=== PATIENT | female | born 1940 | race Caucasian/White ===

== ENCOUNTER → 2023-08-29 12:20 | Outpatient (BNVA) | payer MEDICARE, OTHER, SELFPAY | PROVIDERS: Visit Provider Nurse Practitioner Family | DX: I96 Gangrene, not elsewhere classified (principal); L97.822 Non-pressure chronic ulcer of other part of left lower leg with fat layer exposed | CPT/HCPCS: 87070; 87077; 87176; 87186; 87205 ==

== ENCOUNTER 2023-09-09 15:05 | Inpatient (IN) | payer MEDICARE, SELFPAY ==
[2023-09-09] VITALS (24 sets, daily range): BP systolic 75–131; BP diastolic 40–78; PULSE 97–133; RESP 20–33; TEMP 36.8–36.9; O2SAT 88–98; BMI 29.1
--- NOTE | 2023-09-09 15:12 | ECG_ITS ---
[facility] Test Date: 2023-09-09 Pat Name: Yoly Piedra Department: Room: Gender: Female [employer] Team Member: : 1940 Requested By: Jason Griffiths Order Number: [id number] Candelario MD: Stephen Quigley M.D. Measurements Intervals [place] Rate: 98 P: 43 ID: [id number] QRS: -33 QRSD: 94 T: 33 QT: 314 QTc: 402 Interpretive Statements SINUS RHYTHM LEFT AXIS DEVIATION [QRS AXIS < -30] LOW QRS VOLTAGE IN PRECORDIAL LEADS [QRS DEFLECTION < 1.0 mV IN CHEST LEADS] PATTERN CONSISTENT WITH PULMONARY DISEASE INTERPRETATION BASED ON A DEFAULT AGE OF 40 YEARS No previous ECG available for comparison Electronically Signed On 09-10-2023 23:57:06 CDT by Stephen Quigley M.D. [id number]
--- NOTE | 2023-09-09 15:13 | XRR_ITS ---
PROCEDURE INFORMATION: Exam: XR Chest Exam date and time: 09/09/2023 3:43 PM Age: 83 years old Clinical indication: Prior surgery; Surgery date: 6+ months; Patient HX: SOB; Dyspnea; Cough; Ex smoker; HX RT breast cancer with RT lumpectomy TECHNIQUE: Imaging protocol: Radiologic exam of the chest. Views: 1 view. COMPARISON: No relevant prior studies available. FINDINGS: Lungs: See Pleural spaces finding. Pleural spaces: Moderate left pleural effusion with adjacent compressive atelectasis or pneumonia. Heart/Mediastinum: Heart size not optimally evaluated with a single AP view of the chest. Bones/joints: There are severe degenerative changes across the glenohumeral and acromioclavicular joints. Degenerative changes are present in the visualized spine. XR/XR chest 1V portable [id number] IMPRESSION: Moderate left pleural effusion with adjacent compressive atelectasis or pneumonia.
[2023-09-09] MEDS: ipratropium-albuterol 3 mL Neb INHALATION (15:25)
--- NOTE | 2023-09-09 15:29 | ED_ITS ---
HPI - SOB/Dyspnea 2 General: Chief Complaint: Shortness of Breath/Dyspnea Stated Complaint: SOB Time Seen by Provider: 09/09/23 15:12 Source: patient Mode of arrival: ambulatory History of Present Illness: HPI Narrative: 83-year-old female presents emergency ro om with hypoxia. She is on oxygen normally at 3 L/min on arrival here she is at 90%. Trial off of oxygen she desats to the mid upper 80s. She has had some mild swelling to her lower extremities she denies chest pain. No fever sweats or chills or productive cough. Denies abdominal pain. MD elicited complaint: shortness of breath Associated symptoms: Deny abdominal pain, chest pain or fever(s) Review of Systems 2 Const: Denies: fever(s) or chills Card: Reports: swelling of feet/ankles; Denies: chest pain Resp: Reports: dyspnea GI: Denies: abdominal pain : Denies: dysuria, urinary frequency or urinary urgency Musc: Denies: neck pain or back pain Skin/Breast: Denies: rash PFSH ED 2 PFSH: Medical History (Updated 09/21/23 @ 12:39 by Jason Freeman DO) Unspecified dementia, unspecified severity, without behavioral disturbance, psychotic disturbance, mood disturbance, and anxiety Arthropathy, unspecified Essential (primary) hypertension Gastro-esophageal reflux disease without esophagitis Age-related osteoporosis without current pathological fracture Iron deficiency anemia, unspecified Deficiency of other specified B group vitamins Other chronic pain Overactive bladder Unspecified disorder of adult personality and behavior Hallucinations, unspecified Social History Smoking and tobacco/nicotine status: unknown if used tobacco/nicotine Alcohol intake: unknown Substance/Drug Use: never Housing: Long Term Marital status: / Current occupational status: retired Current gender identity: Female Physical Exam 2 Const: GENERAL APPEARANCE: lethargic ORIENTATION/CONSCIOUSNESS: Yes lethargic HENMT: COMMON NORMALS: normocephalic, atraumatic and hearing grossly normal bilaterally HEAD & SCALP: normocephalic and atraumatic Resp: COMMON NORMALS: normal respiratory effort, No retractions and No use of accessory muscles AUSCULTATION: rhonchi and wheezes Cardio: COMMON NORMALS: regular rate, regular rhythm and No murmurs present (Cardio) RATE: regular rate RHYTHM: regular rhythm GI: COMMON NORMALS: Soft to palpation and No hepatosplenomegaly present A USCULTATION: Yes normoactive bowel sounds PALPATION: Yes Soft to palpation, No Tenderness to palpation present (GI), No Guarding due to palpation present (GI) and Yes No hepatosplenomegaly present Extremity: COMMON NORMALS: normal to inspection, capillary refill normal, no clubbing, cyanosis or edema, no calf tenderness and no pedal edema Neuro: SENSORIUM/ORIENTATION: Yes lethargic Skin: COMMON NORMALS: no rashes or lesions noted GENERAL SKIN EXAM: no rashes or lesions noted Course 2 Vital Signs: Vital signs: Vital Signs Temperature 98.1 F 09/16/23 15:31 Pulse Rate 101 H 09/16/23 15:31 Respiratory Rate 24 H 09/16/23 15:31 Blood Pressure 109/68 09/16/23 15:31 Pulse Oximetry 87 L 09/16/23 15:31 Oxygen Delivery Me thod Nasal Cannula 09/16/23 12:00 Oxygen Flow Rate 5 09/16/23 10:24 Fraction of Inspir ed Oxygen 40 09/12/23 02:25 MDM - SOB/Dyspnea Medical Decision Making Acute hypercapnic respiratory failure with hyperkalemia and hyponatremia. Will admit discussed with hospitalist orders written Medical Records I reviewed the patient's medical records. Lab Data I reviewed the patient's lab results. 09/14/23 04:02 09/16/23 03:36 Labs/Radiology: Radiology Impressions Liver Ultrasound 09/09/23 17:38 IMPRESSION: No acute findings. Chest/Abdomen/Pelvis CT 09/09/23 18:02 IMPRESSION: 1. Consolidation at the posterior aspects of the lungs may represent prominent atelectatic change or pneumonia. 2. Heterogeneous right breast densities. Please correlate with mammography findings. IMPRESSION: There is a ventral abdominal hernia superior to the umbilicus containing a short segment of the transverse colon with associated mucosal thickening and minimal mesenteric inflammatory stranding in this region raising concern for strangulation. Laboratory Results WBC 8.28 10^3/uL (3.29-11.43) 09/09/23 15:24 RBC 4.11 10^6/uL (3.85-5.65) 09/09/23 15:24 Hgb 12.30 g/dL (11.27-16.99) 09/09/23 15:24 Hct 38.8 % (36-47) 09/09/23 15:24 MCV 94.4 fl (85-98) 09/09/23 15:24 MCH 29.9 pg (27-33) 09/09/23 15:24 MCHC 31.7 g/dL (30-55) 09/09/23 15:24 RDW 13.5 % (12.1-15.1) 09/09/23 15:24 Plt Count 230 10^3/cmm (157-399) 09/09/23 15:24 MPV 9.2 fL (7.4-10.4) 09/09/23 15:24 Neut % (Auto) 72.8 % 09/09/23 15:24 Lymph % (Auto) 5.1 % 09/09/23 15:24 [place] % (Auto) 6.2 % 09/09/23 15:24 Eos % (Auto) 14.5 % 09/09/23 15:24 Baso % (Auto) 0.4 % 09/09/23 15:24 Neut # (Auto) 6.04 10^3/uL (1.8-7.7) 09/09/23 15:24 Lymph # (Auto) 0.4 10^3/uL (0.8-4.8) L 09/09/23 15:24 [place] # (Auto) 0.5 10^3/uL (0.2-0.9) 09/09/23 15:24 Eos # (Auto) 1.2 10^3/uL (0.0-0.8) H 09/09/23 15:24 Baso # (Auto) 0.0 10^3/uL (0.0-0.1) 09/09/23:24 Nucleated RBC % (auto) 0 % 09/09/23 15:24 Nucleated RBCs # 0.0 /100WBC 09/09/23 15:24 D-Dimer 1.74 ug/mLFEU (0-0.59) H 09/09/23 15:24 Specimen Type Arterial 09/09/23 15:32 Sample Site Radial, right 09/09/23 15:32 ABG pH 7.34 (7.35-7.45) L 09/09/23 15:32 ABG pCO2 67.6 mmHg (35-45) H* 09/09/23 15:32 ABG pO2 73.3 mmHg (80.0-100.0) L 09/09/23 15:32 ABG PO2/FiO2 Ratio 0 09/09/23 15:32 ABG HCO3 36.4 mmol/L (22-26) H 09/09/23 15:32 ABG O2 Saturation 95.0 09/09/23 15:32 ABG Base Excess 8.4 mmol/L (-2.0-2.0) H 09/09/23 15:32 Shane Test Pos 09/09/23 15:32 A-a O2 Gradient Not Reportable 09/09/23 15:32 Hematocrit 37.1 % (37-47) 09/09/23 15:32 Hgb O2 Saturation 93.3 % (95-100) L 09/09/23 15:32 Carboxyhemoglobin 1.1 %THgb (0.4-20.1) 09/09/23 15:32 Methemoglobin 0.6 % (0.4-1.5) 09/09/23 15:32 Total Hemoglobin 12.1 g/dL (12-16) 09/09/23 15:32 Sodium 129.0 mmol/L (131-143) L 09/09/23 15:32 Potassium 5.4 mmol/L (3.5-5.0) H 09/09/23 15:32 Glucose 95.0 mg/dL (70-115) 09/09/23 15:32 Ionized Calcium 1.3 mmol/L (1.1-1.4) 09/09/23 15:32 O2 Delivery Device Room air 09/09/23 15:32 FiO2 21.0 % 09/09/23 15:32 Brim Presser ID Amh 09/09/23 15:32 Sodium 130 mmol/L (136-145) L 09/09/23 15:24 Sodium Cancelled 09/09/23 15:24 Potassium 6.2 mmol/L (3.5-5.1) H 09/09/23 15:24 Potassium Cancelled 09/09/23 15:24 Chloride 89 mmol/L (98-107) L 09/09/23 15:24 Chloride Cancelled 09/09/23 15:24 Carbon Dioxide 33 mmol/L (22-29) H 09/09/23 15:24 Carbon Dioxide Cancelled 09/09/23 15:24 Anion Gap 14.2 (5-19) 09/09/23 15:24 Anion Gap Cancelled 09/09/23 15:24 BUN 27 mg/dL (8-23) H 09/09/23 15:24 BUN Cancelled 09/09/23 15:24 Creatinine 0.6 mg/dL (0.5-0.9) 09/09/23 15:24 Creatinine Cancelled 09/09/23 15:24 GFR Calculation Cancelled 09/09/23 15:24 GFR Calculation Not Reportable 09/09/23 15:24 Glucose 88 mg/dL (65-115) 09/09/23 15:24 Glucose Cancelled 09/09/23 15:24 Calculated Osmolality 275 mOsm/kg (285-295) L 09/09/23 15:24 Calculated Osmolality Cancelled 09/09/23 15:24 Lactic Acid 1.3 mmol/L (0.5-2.2) 09/09/23 17:26 Calcium 9.6 mg/dL (8.5-10.5) 09/09/23 15:24 Calcium Cancelled 09/09/23 15:24 Iron 26 ug/dL (37-145) L 09/09/23 15:24 TIBC 219 mcg/dl 09/09/23 15:24 % Saturation 11.8 % (20-50) L 09/09/23 15:24 Unsat Iron Binding 193 ug/dL (112-347) 09/09/23 15:24 Total Bilirubin 0.8 mg/dL (0.15-1.2) 09/09/23 15:24 AST 109 U/L (0-32) H 09/09/23 15:24 ALT 131 U/L (0-33) H 09/09/23 15:24 Alkaline Phosphatase 359 U/L (35-105) H 09/09/23 15:24 Troponin T Baseline 20 ng/L (0-10) H 09/09/23 15:24 Troponin T 120 Minute 16.28 ng/L (0-10) H 09/09/23 17:26 Delta Troponin T -3.72 ABS# (0-10) L 09/09/23 17:26 NT-Pro-B Natriuret Pep 1402 pg/mL (0-450) H 09/09/23 15:24 Total Protein 6.4 g/dL (6.6-8.7) L 09/09/23 15:24 Albumin 3.5 g/dL (3.5-5.2) 09/09/23 15:24 Globulin 2.9 g/dL (1.3-4.6) 09/09/23 15:24 Vitamin B12 718 pg/mL (232-1245) 09/09/23 15:24 Procalcitonin 0.21 ng/mL (0-0.5) 09/09/23 17:26 TSH 0.64 uIU/mL (0.27-4.20) 09/09/23 15:24 Urine Color Dark yellow (Yellow) 09/09/23 16:25 Urine Appearance Cloudy (CLEAR) A 09/09/23 16:25 Urine pH 5 (5-7) 09/09/23 16:25 Ur Specific [place] 1.015 (1.005-1.030) 09/09/23 16:25 Urine Protein 1+ (Negative) H 09/09/23 16:25 Urine Glucose (UA) Norm (Normal) 09/09/23 16:25 Urine Ketones 1+ (Negative) H 09/09/23 16:25 Urine Blood Trace (Negative) H 09/09/23 16:25 Urine Nitrate Negative (Negative) 09/09/23 16:25 Urine Bilirubin 1+ (Negative) H 09/09/23 16:25 Urine Urobilinogen Neg mg/dL (Negative) 09/09/23 16:25 Ur Leukocyte Esterase 1+ (Negative) H 09/09/23 16:25 Urine RBC 0-4 /hpf (0-2) H 09/09/23 16:25 Urine WBC 15-25 /hpf (0-5) H 09/09/23 16:25 Ur Squamous Epith Cells 5-10 /hpf (0-5) H 09/09/23 16:25 Amorphous Sediment Not Reportable 09/09/23 16:25 Urine Bacteria 2+ /hpf (NONE) H 09/09/23 16:25 Hyaline Casts 0-4 /lpf H 09/09/23 16:25 All radiology interpretation(s) finalized by discharge Discharge Plan Discharge Patient Disposition: Admitted As Inpatient Admit Provider: Luis Fernando Vargas Clinical Impression: Respiratory failure with hypoxia and hypercapnia, UTI (urinary tract infection), Hyperkalemia, Hyponatremia, Transaminitis, Left leg cellulitis Condition: Fair Discharge Diet: As Directed Discharge Activity: Increase activity as tolerated and Oxygen as instructed Coding Level of Care Code ED [employer] Attorney for Jyoti Butterfield
[2023-09-09 15:43] LABS: ABG PCO2 67.6 mmHg (35-45); ABG PH Result 7.34 (7.35-7.45); Arterial Blood Gas Hematocrit 37.1 % (37-47); Base Excess ABG 8.4 mmol/L (-2.0-2.0); Blood Gas Allen Test Pos; Blood Gas Operator Identificat AMH; Blood Gas Sample Site Radial, right; Blood Gas Sample Type Arterial; Carboxyhemoglobin 1.1 %THgb (0.4-20.1); HCO3 ABG 36.4 mmol/L (22-26); HGB O2 Sat 93.3 % (95-100); Ionized Calcium Level - ABG 1.3 mmol/L (1.1-1.4); Methemoglobin 0.6 % (0.4-1.5); Oxygen Device ROOM AIR; PO2 ABG 73.3 mmHg (80.0-100.0); PO2 FiO2 Ratio Arterial Blood 0; Potassium Level - ABG 5.4 mmol/L (3.5-5.0); Total Hemoglobin 12.1 g/dL (12-16)
[2023-09-09 15:45] LABS: Basophils % 0.4 %; Eosinophils # 1.2 10^3/uL (0.0-0.8); Eosinophils % 14.5 %; Hematocrit 38.8 % (36-47); Lymphocytes # 0.4 10^3/uL (0.8-4.8); Lymphocytes % 5.1 %; Mean Corpuscular HGB Conc 31.7 g/dL (30-55); Mean Corpuscular Hemoglobin 29.9 pg (27-33); Mean Corpuscular Volume 94.4 fl (85-98); Mean Platelet Volume 9.2 fL (7.4-10.4); Monocytes # 0.5 10^3/uL (0.2-0.9); Monocytes % 6.2 %; Neutrophils # 6.04 10^3/uL (1.8-7.7); Neutrophils % 72.8 %; Nucleated Red Blood Cells % 0 %; Platelet Count 230 10^3/cmm (157-399); Red Blood Count 4.11 10^6/uL (3.85-5.65); Red Cell Distribution Width 13.5 % (12.1-15.1); White Blood Count 8.28 10^3/uL (3.29-11.43)
[2023-09-09 15:54] LABS: Alanine Aminotransferase 131 U/L (0-33); Albumin Level 3.5 g/dL (3.5-5.2); Alkaline Phosphatase 359 U/L (35-105); Anion Gap 14.2 (5-19); Aspartate Amino Transferase 109 U/L (0-32); Blood Urea Nitrogen 27 mg/dL (8-23); Calcium 9.6 mg/dL (8.5-10.5); Carbon Dioxide 33 mmol/L (22-29); Chloride 89 mmol/L (98-107); Creatinine Clr Calc Pharmacy 49.5998; Globulin 2.9 g/dL (1.3-4.6); Glucose 88 mg/dL (65-115); Osmolality Calculated 275 mOsm/kg (285-295); Potassium 6.2 mmol/L (3.5-5.1); Sodium 130 mmol/L (136-145); Total Bilirubin 0.8 mg/dL (0.15-1.2); Total Protein 6.4 g/dL (6.6-8.7)
[2023-09-09 15:55] LABS: Troponin(5th) Baseline 20 ng/L (0-10)
--- NOTE | 2023-09-09 16:20 | PC.PHAR ---
PT IS FROM [facility] [phone] FROM [facility] STATES THE PT HAD AM MEDS TODAY-STATES PT IS NOT ON INSULINS OR ANY OTHER INJECTIONS-VERIFIED PTS GABAPENTIN AND ACETAMINOPHEN DIRECTIONS CARVER STATES THE PT TAKES GABAPENTIN 300MG PO BID AND 600MG HS AND ACETAMINOPHEN 650MG IN THE AM 325MG IN THE AFTERNOON AND 325MG HS-
--- NOTE | 2023-09-09 16:33 | PC.NURSE ---
Vital Sign: B/P currently 83/42, Dr. Freeman notified. pt placed in trendelenburg.
[2023-09-09 16:38] LABS: NT Pro B Type Natriuretic Pept 1402 pg/mL (0-450)
[2023-09-09 16:53] LABS: Glucose Urine UA Norm (Normal); Protein Urine 1+ (Negative); Specific Gravity, Urine 1.015 (1.005-1.030); Urine Appearance Cloudy (CLEAR); Urine Color Dark Yellow (Yellow); pH Urine 5 (5-7)
[2023-09-09 16:54] LABS: Add Urine Microscopic? YES; Bilirubin Urine 1+ (Negative); Blood Urine Trace (Negative); Ketones Urine 1+ (Negative); Leukocyte Esterase Urine 1+ (Negative); Nitrate Urine Negative (Negative); Urobilinogen Urine Neg (Negative)
[2023-09-09 16:55] LABS: RBC Urine 0-4 /hpf (0-2)
[2023-09-09 16:56] LABS: Bacteria Urine 2+ /hpf; WBC Urine 15-25 /hpf (0-5)
[2023-09-09 16:57] LABS: Add Urine Culture? Yes; Hyaline Casts Urine 0-4 /lpf
[2023-09-09] MEDS: sodium chloride 0.9% 500 ML 999 ML IV (17:08)
[2023-09-09] MEDS: cefTRIAXone 1,000 MG in sodium chloride 0.9% (plus) 50 ML 100 MG IV (17:08)
--- NOTE | 2023-09-09 17:08 | PC.NURSE ---
Medication Delay: antibiotics delayed that were ordered @1649 d/t waiting on blood cultures to be drawn
--- NOTE | 2023-09-09 17:11 | ECG_ITS ---
[facility] Test Date: 2023-09-09 Pat Name: Yoly Piedra Department: Room: Gender: Female [employer]: : 1940 Requested By: Jason Griffiths Order Number: [id number] Candelario MD: Stephen Quigley M.D. Measurements Intervals [place] Rate: 103 P: 44 [place]: 154 QRS: -30 QRSD: 94 T: 39 QT: 317 QTc: 415 Interpretive Statements SINUS TACHYCARDIA BORDERLINE LEFT AXIS DEVIATION [QRS AXIS < -20] ABNORMAL RHYTHM ECG Compared to ECG 09/09/2023 15:12:56 Sinus rhythm no longer present Electronically Signed On 09-10-2023 23:59:49 CDT by Stephen Quigley M.D. [id number]
[2023-09-09] MEDS: albuterol 2.5 mg/3 mL Neb 10 MG INHALATION (17:37)
--- NOTE | 2023-09-09 17:38 | USR_ITS ---
PROCEDURE INFORMATION: Exam: US Abdomen, Limited; Right Upper Quadrant Exam date and time: 09/09/2023 6:05 PM Age: 83 years old Clinical indication: Elevated liver enzymes; Elevated alp, transaminitis TECHNIQUE: Imaging protocol: Real time ultrasound of the abdomen with image documentation. Limited exam focused on the right upper quadrant. COMPARISON: No relevant prior studies available. FINDINGS: Liver: Normal. No masses. Gallbladder: Normal. No gallstones. There is no gallbladder wall thickening. Biliary ducts: Normal. No stones. No dilation. Pancreas: Visualized pancreas is unremarkable. Right kidney: Normal. No mass. No hydronephrosis. US/US liver [id number] IMPRESSION: No acute findings.
[2023-09-09 17:57] LABS: D Dimer 1.74 ug/mLFEU (0-0.59)
--- NOTE | 2023-09-09 17:59 | PC.NURSE ---
this nurse called and updated Archana, the nurse at [facility] over pt's care. no further questions at end of report.
[2023-09-09 18:01] LABS: Lactic Sepsis W/Reflex 1.3 mmol/L (0.5-2.2)
--- NOTE | 2023-09-09 18:01 | P.HP_ITS ---
Providers/Chief Complaint 2 Chief Complaint: SOB History of Present Illness History gathered by the nurse taking care of the patient at [facility]. Yoly Piedra is a 83 year old female with past medical history of hypertension, halfway resident was sent into the ER today from the halfway because of persistent hypoxia requiring oxygen supplementation up to 3 L over last 10 days gradually getting worse associated with worsening confusion, cough and difficulty in breathing along with generalized weakness. Patient has also been complaining of occasional chest heaviness without any active chest pains. Currently on examination patient is pleasant, laying comfortably in bed, not a good historian but states she has been having to need oxygen so she was sent into the ER. Currently complaining of abdominal fullness with mild epigastric heaviness. Review of Systems 2 General: Reports: ROS unobtainable due to medical condition Medications/Allergies Home Medications Medication Instructions Recorded Confirmed Last Taken Type benzonatate 100 mg capsule 100 mg PO TID PRN Cough 08/29/23 09/09/23 Unknown History bisacodyl 10 mg rectal suppository 10 mg IN DAILY PRN Constipation 08/29/23 09/09/23 Unknown History (Dulcolax (bisacodyl)) calcium citrate 200 mg (950 mg) 200 mg PO QAM 08/29/23 09/09/23 09/09/23 History tablet cholecalciferol (vitamin D3) 50 50 mcg PO QAM 08/29/23 09/09/23 09/09/23 History mcg (2,000 unit) capsule docusate sodium 100 mg capsule 100 mg PO BID PRN Constipation 08/29/23 09/09/23 Unknown History folic acid 1 mg tablet 1 mg PO QAM 08/29/23 09/09/23 09/09/23 History magnesium hydroxide 400 mg/5 mL 30 ml PO DAILY PRN Constipation 08/29/23 09/09/23 Unknown History oral suspension (Milk of Magnesia) metoprolol tartrate 25 mg tablet 25 mg PO BID 08/29/23 09/09/23 09/09/23 History naproxen 500 mg tablet 500 mg PO BID PRN Pain 08/29/23 09/09/23 Unknown History oxybutynin chloride 5 mg tablet 5 mg PO BID 08/29/23 09/09/23 09/09/23 History pantoprazole 40 mg tablet,delayed 40 mg PO QAM 0309/09/23 09/09/23 History release risperidone 0.25 mg tablet 0.25 mg PO BEDTIME 08/29/23 09/09/23 09/08/23 History gentamicin 0.1 % topical ointment 1 applic topical TID 09/05/23 09/09/23 09/09/23 History levofloxacin 750 mg tablet 750 mg PO DAILY 09/05/23 09/09/23 09/09/23 History Lactobacillus acidophilus 10 See Rx Instructions .Route .COMPLEX 09/09/23 09/09/23 09/09/23 History billion cell capsule (Probiotic) acetaminophen 325 mg tablet See Rx Instructions .Route .COMPLEX 09/09/23 09/09/23 09/09/23 History (Tylenol) carbamide peroxide 6.5 % ear drops See Rx Instructions .Route .COMPLEX 09/09/23 09/09/23 Unknown History (Debrox) gabapentin 300 mg capsule See Rx Instructions .Route .COMPLEX 09/09/23 09/09/23 09/09/23 History lidocaine HCl 2 % topical gel See Rx Instructions .Route .COMPLEX 09/09/23 09/09/23 Unknown History vitamin A and D See Rx Instructions .Route .COMPLEX 09/09/23 09/09/23 09/09/23 History Allergies Allergy/AdvReac Type Severity Reaction Status Date / Time Penicillins Allergy Severe ALGY-Anaphy Verified 09/05/23 15:16 laxis vancomycin Allergy Severe ALGY-Difficulty Verified 09/05/23 15:16 Breathing Sulfa (Sulfonamide Allergy Unknown Unknown Verified 09/05/23 15:16 Antibiotics) PFSH Acute 2 PFSH: Medical History (Updated 09/09/23 @ 18:07 by Luis Fernando Vargas MD) Unspecified dementia, unspecified severity, without behavioral disturbance, psychotic disturbance, mood disturbance, and anxiety Arthropathy, unspecified Essential (primary) hypertension Gastro-esophageal reflux disease without esophagitis Age-related osteoporosis without current pathological fracture Iron deficiency anemia, unspecified Deficiency of other specified B group vitamins Other chronic pain Overactive bladder Unspecified disorder of adult personality and behavior Hallucinations, unspecified Social History Smoking and tobacco/nicotine status: unknown if used tobacco/nicotine Alcohol intake: unknown Substance/Drug Use: never Housing: Intermediate Marital status: / Current occupational status: retired Current gender identity: Female Vitals/I&O/Wt Last Vital Signs Temp 98.3 F 09/09/23 15:18 Pulse 108 H 09/09/23 17:53 Resp 27 H 09/09/23 17:44 BP 90/42 09/09/23 17:44 Pulse Ox 97 09/09/23 17:44 O2 Del Method Nasal Cannula 09/09/23 17:44 O2 Flow Rate 3 09/09/23 17:44 09/09/23 09/09/23 09/09/23 06:59 14:59 22:59 Intake Total 500 / 500 Balance 500 / 500 Weight last 48 hrs Weight 58.967 kg Physical Exam 2 Narrative: General: No acute distress, AO x3 HEENT: PERRLA, pupils bilaterally equal and reactive Chest: Normal vesicular breath sounds, no added sounds, equal good air entry bilaterally CVS: S1-S2 regular, no murmurs, no tachycardia, no gallops, no rubs Abdomen: Soft, nontender, no organomegaly, bowel sounds present Neuro: No focal deficits, no facial deformity, AO x3, power 5/5 in all limbs Data 09/09/23 15:24 09/09/23 15:24 Micro: Microbiology 09/09/23 17:26 Blood Culture - Preliminary Blood SPECIMEN COLLECTED 09/09/23 17:20 Blood Culture - Preliminary Blood SPECIMEN COLLECTED A&P Assessment and plan (1) Respiratory failure with hypoxia and hypercapnia: Not based usually on oxygen. Currently requiring 3 L. ABG showing hypercapnia and hypoxia with mild respiratory acidosis. Check D-dimer, sputum culture, urine Legionella, bacterial antigen, procalcitonin, urine culture. Concerns for congestive heart failure on chest x-ray. Cannot rule out underlying consolidation. Depending on D-dimer we will plan for CTA versus CT chest. History of infections with Pseudomonas and MRSA. For now start on IV meropenem and linezolid as patient is allergic to vancomycin. Will de-escalate antibiotics as per culture results. Check echocardiogram. Campbell catheterization. IV Lasix 40 mg one-time followed by daily. Strict input output charting, daily weights. Patient's blood pressure is borderline. Will continue to monitor blood pressure if needed will start on Levophed. (2) UTI (urinary tract infection): Complains of mild dysuria. Appreciate UA. Antibiotics as above. (3) Hyponatremia: Most likely hypervolemic hyponatremia. Monitor BMP daily. (4) Hyperkalemia: Received calcium in the ER. Will give D50 and 10 units of insulin and sodium bicarb. Repeat BMP at around 8 PM. (5) Transaminitis: Not sure of the cause. Check liver ultrasound. Rule out gallbladder pathology. Could be in setting of congestive hepatomegaly. (6) Left leg cellulitis: Follows up with wound care. Continue wound care dressing as per recommendations. Antibiotics as above. (7) Essential (primary) hypertension: Goal blood pressure less than 140/90 mmHg. Blood pressure is currently soft. Continue to hold off on home dose of antihypertensives. Hold off on metoprolol as well. Will monitor for tachycardia. Secondary to low blood pressures requiring Lasix for congestive heart failure for now will give albumin every 8 hourly. If not responding can plan for Levophed. Plan CODE STATUS: As per the nurse from the halfway patient is DNR/DNI. Paperwork from the halfway saying full code. Have requested for paperwork to be faxed over. Till then full code. Cardiac diet. Protonix for PUD prophylaxis Heparin 5000 every 12 hourly for DVT prophylaxis. Attestations 2 Medical Necessity Statement*: Admission for more than 2 midnights for management of respiratory failure with hypoxia and hypercapnia most likely in setting of congestive heart failure, possible UTI, transaminitis under evaluation Diagnoses Respiratory failure with hypoxia and hypercapnia J96.91; J96.92 UTI (urinary tract infection) N39.0 Hyponatremia E87.1 Hyperkalemia E87.5 Transaminitis R74.01 Left leg cellulitis L03.116 Essential (primary) hypertension I10
[2023-09-09 18:02] LABS: Troponin 5 2HR 16.28 ng/L (0-10); Troponin 5 2HR Delta -3.72 ABS# (0-10)
--- NOTE | 2023-09-09 18:02 | CTR_ITS ---
PROCEDURE INFORMATION: Exam: CTA Chest With Contrast Exam date and time: 09/09/2023 7:23 PM Age: 83 years old Clinical indication: Pain and abnormal findings; Abnormal lab test; Other: N/a; Abdominal pain; Generalized; Abnormal diagnostic tests; Elevated d-dimer; Shortness of breath; Prior surgery; Surgery date: 6+ months; Surgery type: Lumpectomy. Bilat anitha; Patient HX: SOB with hypoxia and hypotension. Diffuse abd pain. Dimer 1.74. History of breast cancer. ; Additional info: SOB, hypoxia TECHNIQUE: Imaging protocol: Computed tomographic angiography of the chest with contrast. Exam focused on the arteries. 3D rendering (Not supervised by radiologist): MIP and/or 3D reconstructed images were created by the technologist. Radiation optimization: All CT scans at this facility use at least one of these dose optimization techniques: automated exposure control; mA and/or kV adjustment per patient size (includes targeted exams where dose is matched to clinical indication); or iterative reconstruction. Contrast material: OMNI 350; Contrast volume: 100 ml; Contrast route: INTRAVENOUS (IV); COMPARISON: CR (CHEST, ) 09/09/2023 3:43 PM RADIATION DOSE METRICS: Total DLP (mGy-cm): 859.45 FINDINGS: Pulmonary arteries: Normal. No pulmonary emboli. Aorta: Unremarkable. No aortic aneurysm. No aortic dissection. Lungs: There is consolidation at the posterior aspects of the bilateral lungs. Pleural spaces: Unremarkable. No pneumothorax. No pleural effusion. Heart: Possible cardiomegaly. Suboptimal inspiratory effort makes evaluation difficult. There are calcifications in the mitral and aortic valves. Lymph nodes: Unremarkable. No enlarged lymph nodes. Bones/joints: There are degenerative changes in the visualized spine. Soft tissues: There is heterogeneous density including soft tissue density and calcifications in the right breast. PROCEDURE INFORMATION: Exam: CT Abdomen And Pelvis With Contrast Exam date and time: 09/09/2023 7:23 PM Age: 83 years old Clinical indication: Pain and abnormal findings; Abnormal lab test; Other: N/a; Abdominal pain; Generalized; Abnormal diagnostic tests; Elevated d-dimer; Shortness of breath; Prior surgery; Surgery date: 6+ months; Surgery type: Lumpectomy. Bilat anitha; Patient HX: SOB with hypoxia and hypotension. Diffuse abd pain. Dimer 1.74. History of breast cancer. ; Additional info: SOB, hypoxia TECHNIQUE: Imaging protocol: Computed tomography of the abdomen and pelvis with contrast. Radiation optimization: All CT scans at this facility use at least one of these dose optimization techniques: automated exposure control; mA and/or kV adjustment per patient size (includes targeted exams where dose is matched to clinical indication); or iterative reconstruction. Contrast material: OMNI 350; Contrast volume: 100 ml; Contrast route: INTRAVENOUS (IV); COMPARISON: [place] [id number] 09/09/2023 6:05 PM RADIATION DOSE METRICS: Total DLP (mGy-cm): 859.45 FINDINGS: Liver: Normal. No mass. Gallbladder and bile ducts: Normal. No calcified stones. No ductal dilation. Pancreas: Normal. No ductal dilation. Spleen: Normal. No splenomegaly. Adrenal glands: Normal. No mass. Kidneys and ureters: Normal. No hydronephrosis. Stomach and bowel: There is diverticulosis of the colon without evidence of diverticulitis. Appendix: No evidence of appendicitis. Intraperitoneal space: See Soft tissues finding. Vasculature: Unremarkable. No abdominal aortic aneurysm. Lymph nodes: Unremarkable. No enlarged lymph nodes. Urinary bladder: Unremarkable as visualized. Reproductive: Unremarkable as visualized. Bones/joints: There are degenerative changes in the visualized spine. Multilevel lumbar broad-based disc osteophyte complexes. Bilateral total hip replacements. There is lucency surrounding the left acetabular component raising concern for small particle disease. Soft tissues: There is a ventral abdominal hernia superior to the umbilicus containing a short segment of the transverse colon and surrounding mesentery. There is some mucosal thickening in minimal mesenteric inflammatory stranding in this region raising concern for strangulation. There are postoperative changes in the proximal colon. There is edema in the subcutaneous soft tissues surrounding the pelvis, left greater than right.There are benign-appearing soft tissue calcifications. CT/CT angio chest w abd pel w con IMPRESSION: 1. Consolidation at the posterior aspects of the lungs may represent prominent atelectatic change or pneumonia. 2. Heterogeneous right breast densities. Please correlate with mammography findings. IMPRESSION: There is a ventral abdominal hernia superior to the umbilicus containing a short segment of the transverse colon with associated mucosal thickening and minimal mesenteric inflammatory stranding in this region raising concern for strangulation.
[2023-09-09] MEDS: calcium chloride 10% Syr 10 mL 2 GM IVP (18:06)
[2023-09-09] MEDS: azithromycin 500 MG in sodium chloride 0.9% 250 ML 250 MG IV (18:10)
--- NOTE | 2023-09-09 18:13 | PC.NURSE ---
Delay of intervention/order: insertion of moore catheter and administration of 40mg Lasix delayed d/t ultrasound in room at this time.
[2023-09-09 18:16] LABS: Procalcitonin 0.21 ng/mL (0-0.5)
--- NOTE | 2023-09-09 18:21 | PC.NURSE ---
Medication Delay: Albumin & Sodium Bicarb delayed d/t not being verified at this time & ultrasound in room.
[2023-09-09] MEDS: FUROsemide 10 mg/mL SDV 4mL 40 MG IVP (19:05)
[2023-09-09] MEDS: dextrose 50% syringe 50 mL (19:09)
[2023-09-09] MEDS: iohexol 350 mg/mL 500 mL Btl (per mL) IV (19:24)
[2023-09-09 19:26] LABS: Iron 26 ug/dL (37-145); Percent Saturation 11.8 % (20-50); Thyroid Stimulating Hormone 0.64 uIU/mL (0.27-4.20); Total Iron Binding Capacity 219 mcg/dl; Unsaturated Iron Binding 193 ug/dL (112-347); Vitamin B12 718 pg/mL (232-1245)
[2023-09-09] MEDS: dextrose 10% 250 ML 1000 ML IV ×2 (19:44→21:15)
[2023-09-09] MEDS: sodium bicarbonate 8.4% 1 mEq/mL 50mL Syr 100 MEQ IVP (19:44)
[2023-09-09 20:31] LABS: Glucose Point of Care 192 mg/dL (70-110)
[2023-09-09 20:38] LABS: Glucose Point of Care 249 mg/dL (70-110)
[2023-09-09] MEDS: albumin 25 G/100 ML BAG 60 G IV (20:55)
[2023-09-09] MEDS: insulin regular-human 10 UNIT in SYRINGE 1 EACH 0.100000000000000006 UNIT IVP (21:10)
--- NOTE | 2023-09-09 21:13 | ECG_ITS ---
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 Measurements Intervals [place] Rate: 130 P: 48 NE: 167 QRS: -20 QRSD: 88 T: 53 QT: 274 QTc: 404 Interpretive Statements SINUS TACHYCARDIA SEPTAL MYOCARDIAL INFARCTION , PROBABLY OLD [40+ ms Q WAVE IN V1/V2] Compared to ECG 09/09/2023 17:11:58 Myocardial infarct finding now present Electronically Signed On 09-10-2023 23:59:07 CDT by Stephen Quigley M.D. [id number]
[2023-09-09 21:31] LABS: Anion Gap 13.6 (5-19); Blood Urea Nitrogen 23 mg/dL (8-23); Calcium 11.4 mg/dL (8.5-10.5); Carbon Dioxide 37 mmol/L (22-29); Chloride 87 mmol/L (98-107); Creatinine Clr Calc Pharmacy 49.5998; Glucose 228 mg/dL (65-115); Osmolality Calculated 287 mOsm/kg (285-295); Potassium 4.6 mmol/L (3.5-5.1); Sodium 133 mmol/L (136-145)
[2023-09-09] MEDS: linezolid premix 600 MG/300 ML PREMIX 300 MG IV (21:52)
[2023-09-09] MEDS: heparin 5,000 unit/mL INJ 1 mL 5000 UNIT SUBCUT (22:15)
[2023-09-09] MEDS: oxybutynin 5 mg Tablet PO (22:15)
[2023-09-09] MEDS: risperiDONE 0.25 mg Tablet PO (22:15)
[2023-09-09] MEDS: sodium chloride 0.9% 250 ML IV (22:37)
[2023-09-09] MEDS: gabapentin 300 mg Capsule 600 MG PO (22:38)
[2023-09-09] MEDS: acetaminophen 325 mg Tablet 650 MG PO (22:44)
[2023-09-09 23:23] LABS: Adenovirus Not Detected (NOT DETECT); Chlamydia Pneumoniae Not Detected (NOT DETECT); Coronavirus 229E,HKU1,NL63,OC4 Not Detected (NOT DETECT); Human Metapneumovirus Not Detected (NOT DETECT); Human Rhinovirus/Enterovirus Not Detected (NOT DETECT); Influenza A Not Detected (NOT DETECT); Influenza A H1 Not Detected (NOT DETECT); Influenza A H1-2009 Not Detected (NOT DETECT); Influenza A H3 Not Detected (NOT DETECT); Influenza B Not Detected (NOT DETECT); Mycoplasma Pneumoniae Not Detected (NOT DETECT); Parainfluenza Virus Type 1 Not Detected (NOT DETECT); Parainfluenza Virus Type 2 Not Detected (NOT DETECT); Parainfluenza Virus Type 3 Not Detected (NOT DETECT); Parainfluenza Virus Type 4 Not Detected (NOT DETECT); Respiratory Syncytial Virus A Not Detected (NOT DETECT); Respiratory Syncytial Virus B Not Detected (NOT DETECT); SARS-COV-2 Not Detected (NOT DETECT)
[2023-09-09] MEDS: norepinephrine 4 MG/250 ML BAG 30 MG IV (23:40)
[2023-09-10] VITALS (94 sets, daily range): BP systolic 82–141; BP diastolic 41–100; PULSE 95–124; RESP 17–40; TEMP 36.4–37.6; O2SAT 84–100; BMI 31.4
[2023-09-10] MEDS: meropenem 1,000 MG in sodium chloride 0.9% (plus) 50 ML 100 MG IV ×3 (03:06→17:39)
[2023-09-10] MEDS: albumin 25 G/100 ML BAG 60 G IV ×3 (03:41→17:47)
[2023-09-10 04:36] LABS: Basophils % 0.3 %; Eosinophils # 0.8 10^3/uL (0.0-0.8); Eosinophils % 6.6 %; Hematocrit 36.5 % (36-47); Lymphocytes # 0.3 10^3/uL (0.8-4.8); Mean Corpuscular HGB Conc 30.1 g/dL (30-55); Mean Corpuscular Hemoglobin 29.5 pg (27-33); Mean Corpuscular Volume 97.9 fl (85-98); Mean Platelet Volume 8.8 fL (7.4-10.4); Monocytes # 0.7 10^3/uL (0.2-0.9); Monocytes % 5.9 %; Neutrophils # 9.61 10^3/uL (1.8-7.7); Neutrophils % 83.6 %; Nucleated Red Blood Cells % 0 %; Platelet Count 203 10^3/cmm (157-399); Red Blood Count 3.73 10^6/uL (3.85-5.65); Red Cell Distribution Width 13.6 % (12.1-15.1)
[2023-09-10 04:53] LABS: Estmated Average Glucose 100; Hemoglobin A1C 5.1 % (4.0-6.0)
[2023-09-10 04:55] LABS: Alanine Aminotransferase 91 U/L (0-33); Albumin Level 3.4 g/dL (3.5-5.2); Alkaline Phosphatase 258 U/L (35-105); Anion Gap 11.6 (5-19); Aspartate Amino Transferase 48 U/L (0-32); Blood Urea Nitrogen 18 mg/dL (8-23); Calcium 10.3 mg/dL (8.5-10.5); Carbon Dioxide 39 mmol/L (22-29); Chloride 87 mmol/L (98-107); Globulin 2.5 g/dL (1.3-4.6); Glucose 107 mg/dL (65-115); Magnesium 1.3 mg/dL (1.7-2.3); Osmolality Calculated 278 mOsm/kg (285-295); Phosphorus 4.3 mg/dL (2.5-4.5); Potassium 4.6 mmol/L (3.5-5.1); Sodium 133 mmol/L (136-145); Total Bilirubin 0.9 mg/dL (0.15-1.2); Total Protein 5.9 g/dL (6.6-8.7)
[2023-09-10 05:00] LABS: Procalcitonin 0.23 ng/mL (0-0.5)
[2023-09-10 05:01] LABS: Chol HDL Ratio 1.67 mg/dL (0.0-4.40); Cholesterol 90 mg/dL (0-200); HDL Cholesterol 54 mg/dL (60-100); LDL Cholesterol Calculated 28 mg/dL (50-129); LDL HDL Ratio 0.52 RATIO (0.00-3.22); Triglycerides 39 mg/dL (0-150)
[2023-09-10 05:18] LABS: Folate Level > 20.0 ng/mL (4.8-37.3)
--- NOTE | 2023-09-10 06:00 | USCV_ITS ---
Tadeo Yoly Age: 83 Gender: F : 1940 Exam Date: 09/10/2023 14:30 Ordering Phys: Luis Fernando Vargas MD Technologist: Ronak Villegas Exam Location: [facility] [place] Indication: chf BP: 112 / 65 HR: 116 Rhythm: Sinus Technical Quality: Adequate MEASUREMENTS (Male / Female) Normal Values 2D ECHO LVOT Diameter 2.1 cm LV Ejection Fraction MOD 2C 65.3 % LV Ejection Fraction 2C AL 68.9 % LA Diameter 3.6 cm RA Systolic Volume 4C AL 37.3 ml RA Systolic Volume 4C MOD 36.8 ml Aorta at Sinotubular Diameter 2.8 cm IVC Diameter 2.2 cm M-MODE LA Ao Ratio MM 0.5 AV Cusp Separation MM 1.5 cm DOPPLER AV Peak Velocity 252.0 cm/s LVOT Peak Velocity 89.0 cm/s AV Area Cont Eq vti 1.3 cm squared AV Area Cont Eq pk 1.2 cm squared MV Peak Velocity 173.0 cm/s TV Peak Velocity 326.5 cm/s TR Peak Velocity 344.0 cm/s TR Peak Gradient 47.3 mmHg TR Mean Velocity 283.0 cm/s TR Mean Gradient 33.9 mmHg TR Velocity Time Integral 79.3 cm PV Peak Velocity 88.0 cm/s RV Ejection Time 0.3 s FINDINGS Left Ventricle Left ventricle is normal in size. LV systolic function is normal with EF of 60 to 65%. No regional wall motion abnormalities are seen. Right Ventricle Normal in size and function Right Atrium Normal in size Left Atrium Normal in size Mitral Valve Moderate mitral annular calcification. Mild mitral regurgitation. Mild to moderate mitral stenosis with mean gradient across mitral valve of 7mmHg. Aortic Valve Aortic valve is thickened. Mild aortic stenosis with aortic valve area of 1.3 cm squared and mean gradient of 15 mmHg. Tricuspid Valve Mild tricuspid regurgitation. RVSP is 45 to 50 mmHg. This is consistent with moderate pulmonary hypertension. Pulmonic Valve Not well visualized. Pericardium Normal Aorta Normal in size IVC Dilated CONCLUSIONS LV systolic function is normal with EF of 60-65% Mild mitral regurgitation Mild to moderate mitral stenosis Mild aortic stenosis Mild tricuspid regurgitation Moderate pulmonary hypertension No comparison studies are available. Stephen Quigley MD (Electronically Signed) Final Date: 11 September 2023 11:23 S
[2023-09-10] MEDS: pantoprazole DR 40 mg Tablet PO (06:11)
[2023-09-10] MEDS: folic acid 1 mg Tablet PO (06:11)
[2023-09-10] MEDS: gabapentin 300 mg Capsule PO (06:11)
[2023-09-10] MEDS: FUROsemide 10 mg/mL SDV 4mL 40 MG IVP (08:45)
[2023-09-10] MEDS: linezolid premix 600 MG/300 ML PREMIX 300 MG IV ×2 (08:45→20:50)
[2023-09-10] MEDS: norepinephrine 4 MG/250 ML BAG 22.5 MG IV (08:46)
[2023-09-10] MEDS: sodium chloride 0.9% 500 ML 100 ML IV (10:00)
[2023-09-10] MEDS: heparin 5,000 unit/mL INJ 1 mL 5000 UNIT SUBCUT ×2 (10:07→20:51)
--- NOTE | 2023-09-10 10:52 | PC.NURSE ---
Roxanaetah done at 0955. showed pt is fluid responsive with a change of 34.2%.
[2023-09-10] MEDS: oxybutynin 5 mg Tablet PO ×2 (11:58→17:39)
[2023-09-10] MEDS: lactulose oral liq 20 gm/30 mL UDC PO ×3 (11:58→20:51)
[2023-09-10 12:53] LABS: Ammonia 64 umol/L (11-51)
--- NOTE | 2023-09-10 14:44 | P.PN_ITS ---
Subjective 2 Subjective: Overnight patient was brought to the ICU for concern for septic shock. Admission was switched over to ICU. Patient has remained on Levophed of 6 which is increased to 8. Patient had good urine output 2039 Lasix she received in the ER. On examination today blood pressures have improved to more than 100 systolics. Levophed being weaned down. Saturating more than 92% on 3 L of O2 supplementation. Patient is less arousable today. Grimacing to painful stimulus. No bowel movements. Vitals/I&O/Wt Last Vital Signs Temp 98.7 F 09/10/23 08:00 Pulse 96 09/10/23 14:00 Resp 31 H 09/10/23 12:00 BP 108/64 09/10/23 12:00 Pulse Ox 94 09/10/23 12:00 O2 Del Method Nasal Cannula 09/10/23 12:00 O2 Flow Rate 3 09/10/23 12:00 09/09/23 09/10/23 09/10/23 22:59 06:59 14:59 Intake Total 1460 / 1460 895 / 2355 555 / 555 Output Total 2275 / 2275 950 / 3225 Balance -815 / -815 -55 / -870 555 / 555 Weight last 48 hrs Weight 63.503 kg Weight 65.5 kg Weight 64.6 kg Weight 58.967 kg Physical Exam 2 Narrative: General: In no acute distress, arousable, arouses to painful stimulus. HEENT: PERRLA, pupils bilaterally equal and reactive Chest: Normal vesicular breath sounds, no added sounds, equal good air entry bilaterally CVS: S1-S2 regular, no murmurs, no tachycardia, no gallops, no rubs Abdomen: Soft, nontender, no organomegaly, bowel sounds present Neuro: No focal deficits, no facial deformity, AO x3, power 5/5 in all limbs Urinary Catheter Management: Campbell: Cath Placed During This Visit: yes Reason for Continuing Indwelling Catheter: Acute Urinary Retention or Obstruction Urinary Catheter Date of Insertion: 09/09/23 Urinary Catheter Time of Insertion: 19:00 Data 09/10/23 03:47 09/10/23 03:47 Micro: Microbiology 09/09/23 16:25 Bacterial Antigens - Final Urine Kidney 09/09/23 16:25 Legionella Urinary Antigen - Final Unknown Source 09/09/23 17:26 Blood Culture - Preliminary Blood SPECIMEN COLLECTED 09/09/23 17:20 Blood Culture - Preliminary Blood SPECIMEN COLLECTED A&P Assessment and plan (1) Septic shock: SIRS: Septic shock, leukocytosis Source: Pneumonia/cellulitis End organ damage: Acute infectious encephalopathy??Transaminitis Lactic acid within normal limits Patient did not receive full 30 mL/kg BW with concerns for mild congestive heart failure. Cheetah exam did show patient being fluid responsive for started on IV fluids. Follow-up blood culture, urine culture, urine Legionella, bacterial antigen negative. Keep mean artery pressure 65. Wean Levophed accordingly. 500 cc IV fluid bolus followed by normal saline at 50 cc/h. Watch for fluid overload. Concerns for pneumonia on CTA. Also has cellulitis of lower limb. CT abdomen pelvis concern for ventral hernia with possible strangulation. Discussed in detail with surgery on-call. No concerns for strangulation for now. (2) Respiratory failure with hypoxia and hypercapnia: LNot baseline oxygen. Currently requiring up to 3 L. ABG showing hypercapnia and hypoxia with mild respiratory acidosis. Appreciate CTA chest results. Concerns for mild consolidation versus atelectasis. Echocardiogram done. Results pending. Sputum culture not yet collected. History of infections with Pseudomonas and MRSA. Continue with IV meropenem and linezolid as patient is allergic to vancomycin. Will de-escalate antibiotics as per culture results. Echocardiogram results pending. Continues Campbell catheterization. Cheetah shows patient to be alert responsive. Started on IV fluids as above. Watch for fluid overload.Check echocardiogram. (3) Encephalopathy: Most likely in setting of hepatic encephalopathy. Patient does have transaminitis. Also had hypercapnia on admission. Check ammonia levels. ABG. Lactulose 20 mg every 12 hourly. Medical reconciliation done. Continue with home dose of risperidone. (4) UTI (urinary tract infection): Complains of mild dysuria. Appreciate UA. Follow-up urine culture. Antibiotics as above. (5) Transaminitis: Not sure of the cause. Appreciate liver ultrasound. No gallbladder pathology. Check hepatitis panel. (6) Hyponatremia: Resolving. Continue to monitor daily. Up to 123. (7) Hyperkalemia: Resolved. (8) Left leg cellulitis: Follows up with wound care. Continue wound care dressing as per recommendations. Antibiotics as above. (9) Essential (primary) hypertension: Goal blood pressure less than 140/90 mmHg. Currently in septic shock. Hold off on antihypertensives. Will restart antihypertensive medications once blood pressure more stable. (10) Non-healing wound of left lower extremity: Plan CODE STATUS: Reviewed the [facility] from [facility]. Discussed in detail with patient's DPOA Mr. Shahid. CODE STATUS changed to DNR/DNI. Cardiac diet. Protonix for PUD prophylaxis Heparin 5000 every 12 hourly for DVT prophylaxis. Attestations 2 Medical Necessity Statement*: Requires further hospitalization for management of septic shock while Levophed is weaned off, encephalopathy most likely hepatic and the patient was admitted for cellulitis and pneumonia Critical Care Time: The high probability of a clinically significant, sudden or life threatening deterioration of the patient's [cardiac, pulmonary, ID,] system(s) required my full and direct attention, intervention and personal management. The critical care time is as shown. This time is in addition to time spent performing any reported procedures but includes the following: [x] Data and vital sign review and interpretation [x] Patient assessment, examination and intervention [x] Documentation [x] Medication orders and management Coding Level of Care Code Critical Care >/= 30 minutes Critical care time (in minutes): 60 The high probability of a clinically significant, sudden or life threatening deterioration, as referenced in this documentation, required my full and direct attention, intervention and personal management. The critical care time shown is in addition to time spent performing any reported separately billable procedures and includes the following: [x] Data and vital sign review and interpretation [x ] Patient assessment, examination and intervention [x] Medication orders and management [x] Patient/Family updates as able [x] Care Coordination and Documentation. Other Coding Information This patient has a high probability of clinically significant, sudden or life threatening deterioration of the patient's (neurological/pulmonary/cardiac/renal/ID/endocrine) systems required my full, direct attention, the highest level of physician preparedness for urgent intervention and personal management. I managed/supervised life or organ supporting interventions that required frequent physician assessment. I devoted my full attention in the ICU to the direct care of this patient for the period of time indicated above. Time I spent with family or surrogate(s) is included only if the patient was incapable of providing necessary information or participating in decision making. This time includes the following services provided: Telemetry review Hemodynamic interpretation, assessment and management Review and interpretation of CXR Review and interpretation of lab values Review and interpretation of microbiologic data and culture results Review of medications and administration Review and interpretation of Nutrition requirements and management Discussion of management with other consultants and services Clinical update to family members Diagnoses Septic shock A41.9; R65.21 Respiratory failure with hypoxia and hypercapnia J96.91; J96.92 Encephalopathy G93.40 UTI (urinary tract infection) N39.0 Transaminitis R74.01 Hyponatremia E87.1 Hyperkalemia E87.5 Left leg cellulitis L03.116 Essential (primary) hypertension I10 Non-healing wound of left lower extremity S81.802A
[2023-09-10 15:12] LABS: ABG PH Result 7.37 (7.35-7.45); Base Excess ABG 15.8 mmol/L (-2.0-2.0); Blood Gas Allen Test Pos; Blood Gas Sample Type Arterial; Carboxyhemoglobin 0.8 %THgb (0.4-20.1); HCO3 ABG 44.3 mmol/L (22-26); HGB O2 Sat 92.1 % (95-100); Ionized Calcium Level - ABG 1.3 mmol/L (1.1-1.4); Methemoglobin 0.7 % (0.4-1.5); Oxygen Saturation ABG 93.5; Potassium Level - ABG 3.9 mmol/L (3.5-5.0); Total Hemoglobin 11.1 g/dL (12-16)
[2023-09-10 15:13] LABS: Blood Gas Operator Identificat MONRO; Blood Gas Sample Site Radial, left; Fractionated Inspired Oxygen 0.3 %; Oxygen Device NC; PO2 FiO2 Ratio Arterial Blood 0
[2023-09-10 15:14] LABS: ABG PCO2 77.4 mmHg (35-45)
[2023-09-10] MEDS: gabapentin 100 mg Capsule 200 MG PO (17:39)
[2023-09-10] MEDS: risperiDONE 0.25 mg Tablet PO (20:50)
[2023-09-10 21:10] LABS: ABG PCO2 54.3 mmHg (35-45); ABG PH Result 7.53 (7.35-7.45); Alveolar-Arterial Oxygen Gradi 15.5 mmHg (5-10); Arterial Blood Gas Hematocrit 32.3 % (37-47); Base Excess ABG 19.5 mmol/L (-2.0-2.0); Blood Gas Allen Test Pos; Blood Gas Sample Site Radial, left; Blood Gas Sample Type Arterial; Carboxyhemoglobin 1.3 %THgb (0.4-20.1); HCO3 ABG 44.8 mmol/L (22-26); Ionized Calcium Level - ABG 1.2 mmol/L (1.1-1.4); Methemoglobin 0.5 % (0.4-1.5); Oxygen Device BIPAP; Oxygen Saturation ABG 92.7; PO2 ABG 55.4 mmHg (80.0-100.0); PO2 FiO2 Ratio Arterial Blood 0; Total Hemoglobin 10.5 g/dL (12-16)
[2023-09-11] VITALS (91 sets, daily range): BP systolic 90–153; BP diastolic 49–98; PULSE 90–124; RESP 12–49; TEMP 36.9–38.3; O2SAT 85–100
[2023-09-11] MEDS: meropenem 1,000 MG in sodium chloride 0.9% (plus) 50 ML 100 MG IV ×3 (02:21→22:09)
[2023-09-11] MEDS: albumin 25 G/100 ML BAG 60 G IV ×3 (02:21→17:52)
[2023-09-11] MEDS: acetaminophen 325 mg Tablet 650 MG PO ×2 (02:48→10:05)
[2023-09-11] MEDS: pantoprazole DR 40 mg Tablet PO (05:23)
[2023-09-11] MEDS: folic acid 1 mg Tablet PO (05:23)
[2023-09-11 05:50] LABS: Basophils % 0.3 %; Eosinophils # 0.3 10^3/uL (0.0-0.8); Eosinophils % 3.2 %; Hematocrit 30.6 % (36-47); Lymphocytes # 0.5 10^3/uL (0.8-4.8); Lymphocytes % 5.6 %; Mean Corpuscular HGB Conc 31.7 g/dL (30-55); Mean Corpuscular Hemoglobin 29.8 pg (27-33); Mean Corpuscular Volume 93.9 fl (85-98); Monocytes # 0.7 10^3/uL (0.2-0.9); Monocytes % 7.8 %; Neutrophils # 7.55 10^3/uL (1.8-7.7); Neutrophils % 82.4 %; Nucleated Red Blood Cells % 0 %; Platelet Count 196 10^3/cmm (157-399); Red Blood Count 3.26 10^6/uL (3.85-5.65); Red Cell Distribution Width 13.7 % (12.1-15.1); White Blood Count 9.15 10^3/uL (3.29-11.43)
[2023-09-11 06:09] LABS: Alanine Aminotransferase 50 U/L (0-33); Albumin Level 4.2 g/dL (3.5-5.2); Alkaline Phosphatase 198 U/L (35-105); Anion Gap 14.5 (5-19); Aspartate Amino Transferase 29 U/L (0-32); Blood Urea Nitrogen 17 mg/dL (8-23); Calcium 10.2 mg/dL (8.5-10.5); Carbon Dioxide 39 mmol/L (22-29); Chloride 90 mmol/L (98-107); Creatinine Clr Calc Pharmacy 52.5716; Glucose 110 mg/dL (65-115); Osmolality Calculated 292 mOsm/kg (285-295); Potassium 3.5 mmol/L (3.5-5.1); Sodium 140 mmol/L (136-145); Total Bilirubin 1.4 mg/dL (0.15-1.2); Total Protein 6.2 g/dL (6.6-8.7)
[2023-09-11] MEDS: oxybutynin 5 mg Tablet PO ×2 (09:45→17:52)
[2023-09-11] MEDS: heparin 5,000 unit/mL INJ 1 mL 5000 UNIT SUBCUT ×2 (09:45→22:09)
[2023-09-11] MEDS: gabapentin 100 mg Capsule 200 MG PO ×2 (09:45→17:52)
[2023-09-11] MEDS: lactulose oral liq 20 gm/30 mL UDC PO ×2 (09:46→16:36)
[2023-09-11] MEDS: linezolid premix 600 MG/300 ML PREMIX 300 MG IV ×2 (09:46→20:00)
--- NOTE | 2023-09-11 11:21 | PC.SOCIAL ---
IMM Update Pg. 2 of IMM updated. Copy provided to patient. Copy placed in chart.
--- NOTE | 2023-09-11 15:22 | PC.OT ---
OT EVALUATION ATTEMPTED. PATIENT UNABLE TO OPEN EYES OR FOLLOW ONE STEP DIRECTION AT THIS TIME. PER NURSING, THE PATIENT HAS JUST BEEN CLEANED UP AND IS FATIGUED. WILL ATTEMPT AGAIN TOMORROW.
--- NOTE | 2023-09-11 16:17 | PC.NURSE ---
Pt's bracelet and watch bagged, labeled and placed in pyxis.
--- NOTE | 2023-09-11 18:57 | PC.NURSE ---
[facility] staff called. Wanted to inform hospital staff that patient has 4 oz of wine every night via family. Wanted to make sure staff was aware so that we could reassure pt she could have it when she returned home. Stated pt hesitated to inform staff of pain. Stated pt, never wanted to bother us.
[2023-09-11] MEDS: risperiDONE 0.25 mg Tablet PO (20:00)
[2023-09-11] MEDS: morphine 4 mg/mL SDV 1 mL 2 MG IVP (20:00)
--- NOTE | 2023-09-11 21:58 | PC.NURSE ---
Patient has had multiple loose stools this date. As per physician guidelines, evening Lactulose held.
--- NOTE | 2023-09-11 23:32 | P.PN_ITS ---
Subjective 2 Subjective: She is lethargic, but wakes up to voice, denies pain or discomfort, reports breathing feels okay. Vitals/I&O/Wt Last Vital Signs Temp 98.4 F 09/11/23 20:00 Pulse 111 H 09/11/23 22:00 Resp 34 H 09/11/23 21:45 BP 153/72 09/11/23 21:45 Pulse Ox 92 09/11/23 21:45 O2 Del Method BiPAP 09/11/23 07:25 O2 Flow Rate 3 09/10/23 15:00 FiO2 40 09/11/23 10:08 09/11/23 09/11/23 09/12/23 14:59 22:59 06:59 Intake Total 100 / 100 710 / 810 Output Total 500 / 500 Balance 100 / 100 210 / 310 Weight last 48 hrs Weight 62 kg Weight 62.5 kg Weight 63.503 kg Weight 65.5 kg Physical Exam 2 Const: COMMON NORMALS: negative for alert GENERAL APPEARANCE: cooperative and lethargic ORIENTATION/CONSCIOUSNESS: Yes lethargic; not awake HENMT: COMMON NORMALS: oropharynx normal Neck/C-Spine: COMMON NORMALS: no JVD Resp: AUSCULTATION: wheezes (Mild) Cardio: COMMON NORMALS: no JVD, regular rhythm, S1 normal heart sound present, S2 normal heart sound present and No murmurs present (Cardio) RHYTHM: regular rhythm HEART SOUNDS: S1 normal heart sound present and S2 normal heart sound present GI: COMMON NORMALS: Normal to inspection, nondistended, normoactive bowel sounds present, Soft to palpation and non-tender PALPATION: Yes Soft to palpation Extremity: COMMON NORMALS: no joint enlargement and no pedal edema Neuro: COMMON NORMALS: moves all extremities SENSORIUM/ORIENTATION: No alert and Yes lethargic Skin: NARRATIVE SKIN EXAM: Erythema right lower extremity. Left lower extremity dressing in place. Urinary Catheter Management: Campbell: Cath Placed During This Visit: yes Reason for Continuing Indwelling Catheter: Accurate Measurement of Urinary Output in Critically Ill Patients Urinary Catheter Date of Insertion: 09/09/23 Urinary Catheter Time of Insertion: 19:00 Data 09/11/23 05:07 09/11/23 05:07 Micro: Microbiology 09/09/23 16:25 Urine Culture - Final Urine Catheterized A&P Assessment and plan (1) Respiratory failure with hypoxia and hypercapnia: Continue BiPAP support, wean down as tolerating. Reassess mental status. Continue treatment of pneumonia. Not baseline oxygen. Currently requiring up to 3 L. ABG showing hypercapnia and hypoxia with mild respiratory acidosis. Appreciate CTA chest results. Concerns for mild consolidation versus atelectasis. Echocardiogram done. Results pending. Sputum culture not yet collected. History of infections with Pseudomonas and MRSA. Continue with IV meropenem and linezolid as patient is allergic to vancomycin. Will de-escalate antibiotics as per culture results. Echocardiogram results pending. Continues Campbell catheterization. Cheetah shows patient to be alert responsive. Started on IV fluids as above. Watch for fluid overload.Check echocardiogram. (2) Septic shock: Reviewed vitals, CBC, CMP, pressor requirement. She is weaned off norepinephrine. Receiving albumin. Reassess blood pressure. Reviewed blood culture, negative. Continue treatment of pneumonia. Still having cellulitis of lower extremity. Continue meropenem, monitor for risk of seizure, continue linezolid, monitor for risk of agranulocytosis, recheck CBC. Stop albumin Discussed with case assistant. SIRS: Septic shock, leukocytosis Source: Pneumonia/cellulitis End organ damage: Acute infectious encephalopathy??Transaminitis Concerns for pneumonia on CTA. Also has cellulitis of lower limb. CT abdomen pelvis concern for ventral hernia with possible strangulation. Appreciate surgery input. No concerns for strangulation for now. (3) Encephalopathy: Concern for hepatic encephalopathy, continue lactulose. She has been having bowel movements. Was more awake later this afternoon. Most likely in setting of hepatic encephalopathy. Patient does have transaminitis. Also had hypercapnia on admission. Follow-up ammonia levels. ABG. Lactulose 20 mg every 12 hourly. Medical reconciliation done. Continue with home dose of risperidone. (4) UTI (urinary tract infection): Reviewed urine culture, normal antonia. Complains of mild dysuria. Appreciate UA. Follow-up urine culture. Antibiotics as above. (5) Transaminitis: Not sure of the cause. Appreciate liver ultrasound. No gallbladder pathology. Check hepatitis panel. (6) Hyponatremia: Reviewed sodium, resolved. (7) Hyperkalemia: Resolved. (8) Left leg cellulitis: Follows up with wound care. Does also have right lower extremity cellulitis above the ankle. Continue wound care dressing as per recommendations. Antibiotics as above. (9) Essential (primary) hypertension: Goal blood pressure less than 140/90 mmHg. Currently in septic shock. Hold off on antihypertensives. Will restart antihypertensive medications once blood pressure more stable. (10) Non-healing wound of left lower extremity: Plan CODE STATUS: Reviewed the paperwork from [facility]. Discussed in detail with patient's DPOA Mr. Shahid. CODE STATUS changed to DNR/DNI. Cardiac diet. Protonix for PUD prophylaxis Heparin 5000 every 12 hourly for DVT prophylaxis. Attestations 2 Medical Necessity Statement*: Continue admission for assessment management of pneumonia, cellulitis, acute encephalopathy. Diagnoses Respiratory failure with hypoxia and hypercapnia J96.91; J96.92 Septic shock A41.9; R65.21 Encephalopathy G93.40 UTI (urinary tract infection) N39.0 Transaminitis R74.01 Hyponatremia E87.1 Hyperkalemia E87.5 Left leg cellulitis L03.116 Essential (primary) hypertension I10 Non-healing wound of left lower extremity S81.802A
[2023-09-12] VITALS (75 sets, daily range): BP systolic 92–140; BP diastolic 51–99; PULSE 89–112; RESP 17–34; TEMP 36.1–37; O2SAT 89–97
[2023-09-12] MEDS: morphine 4 mg/mL SDV 1 mL 2 MG IVP (01:12)
[2023-09-12 04:32] LABS: Basophils % 0.3 %; Eosinophils # 1.1 10^3/uL (0.0-0.8); Eosinophils % 12.1 %; Lymphocytes # 0.7 10^3/uL (0.8-4.8); Lymphocytes % 7.6 %; Mean Corpuscular HGB Conc 31.5 g/dL (30-55); Mean Corpuscular Hemoglobin 29.8 pg (27-33); Mean Corpuscular Volume 94.7 fl (85-98); Mean Platelet Volume 8.4 fL (7.4-10.4); Monocytes # 0.6 10^3/uL (0.2-0.9); Monocytes % 6.9 %; Neutrophils # 6.58 10^3/uL (1.8-7.7); Neutrophils % 72.3 %; Nucleated Red Blood Cells % 0 %; Platelet Count 175 10^3/cmm (157-399); Red Blood Count 3.59 10^6/uL (3.85-5.65); Red Cell Distribution Width 13.9 % (12.1-15.1)
[2023-09-12 04:53] LABS: Alanine Aminotransferase 38 U/L (0-33); Albumin Level 4.3 g/dL (3.5-5.2); Alkaline Phosphatase 178 U/L (35-105); Anion Gap 11.1 (5-19); Aspartate Amino Transferase 25 U/L (0-32); Blood Urea Nitrogen 14 mg/dL (8-23); Calcium 10.2 mg/dL (8.5-10.5); Carbon Dioxide 40 mmol/L (22-29); Chloride 91 mmol/L (98-107); Globulin 2.2 g/dL (1.3-4.6); Glucose 82 mg/dL (65-115); Osmolality Calculated 288 mOsm/kg (285-295); Potassium 3.1 mmol/L (3.5-5.1); Sodium 139 mmol/L (136-145); Total Bilirubin 1.2 mg/dL (0.15-1.2); Total Protein 6.5 g/dL (6.6-8.7)
[2023-09-12 05:01] LABS: Ammonia 26 umol/L (11-51)
[2023-09-12] MEDS: folic acid 1 mg Tablet PO (05:51)
[2023-09-12] MEDS: pantoprazole DR 40 mg Tablet PO (05:51)
[2023-09-12 08:06] LABS: Glucose Point of Care 86 mg/dL (70-110)
[2023-09-12] MEDS: gabapentin 100 mg Capsule 200 MG PO ×2 (08:16→17:24)
[2023-09-12] MEDS: oxybutynin 5 mg Tablet PO ×2 (08:16→17:24)
[2023-09-12] MEDS: linezolid premix 600 MG/300 ML PREMIX 300 MG IV ×2 (08:16→22:02)
[2023-09-12] MEDS: meropenem 1,000 MG in sodium chloride 0.9% (plus) 50 ML 100 MG IV ×2 (09:42→23:10)
[2023-09-12] MEDS: heparin 5,000 unit/mL INJ 1 mL 5000 UNIT SUBCUT ×2 (09:45→22:09)
--- NOTE | 2023-09-12 11:56 | PC.PT ---
This patient unable to participate, she was able to to do some AARM, but overall she was dependent care in the NH, skilled PT not appropriate at this time
[2023-09-12 12:37] LABS: Glucose Point of Care 87 mg/dL (70-110)
--- NOTE | 2023-09-12 16:49 | PC.NURSE ---
This nurse received report from KIKE Tello in ICU at 1016.
--- NOTE | 2023-09-12 17:17 | PC.NURSE ---
This nurse assumed care of pt at 1714
--- NOTE | 2023-09-12 19:45 | P.PN_ITS ---
Subjective 2 Subjective: She denies pain or discomfort. She is more awake compared to yesterday, although not very conversant, only sporadically answering questions mostly yes/no. Somewhat delayed responses. Vitals/I&O/Wt Last Vital Signs Temp 97.7 F 09/12/23 17:49 Pulse 101 H 09/12/23 17:49 Resp 18 09/12/23 17:49 BP 134/79 09/12/23 17:49 Pulse Ox 93 09/12/23 17:49 O2 Del Method Nasal Cannula 09/12/23 17:49 O2 Flow Rate 5 09/12/23 17:25 FiO2 40 09/12/23 02:25 09/12/23 09/12/23 09/12/23 06:59 14:59 22:59 Intake Total 590 / 1400 450 / 450 50 / 500 Output Total 350 / 850 200 / 200 50 / 250 Balance 240 / 550 250 / 250 0 / 250 Weight last 48 hrs Weight 62 kg Weight 63 kg Weight 62 kg Weight 62.5 kg Physical Exam 2 Const: GENERAL APPEARANCE: cooperative; not lethargic ORIENTATION/CONSCIOUSNESS: Yes awake; not lethargic HENMT: COMMON NORMALS: oropharynx normal Neck/C-Spine: COMMON NORMALS: no JVD Resp: COMMON NORMALS: normal respiratory effort and clear to auscultation bilaterally AUSCULTATION: clear to auscultation bilaterally and diminished lung sounds Cardio: COMMON NORMALS: no JVD, regular rhythm, S1 normal heart sound present, S2 normal heart sound present and No murmurs present (Cardio) RHYTHM: regular rhythm HEART SOUNDS: S1 normal heart sound present and S2 normal heart sound present GI: COMMON NORMALS: Normal to inspection, nondistended, normoactive bowel sounds present, Soft to palpation and non-tender PALPATION: Yes Soft to palpation Extremity: COMMON NORMALS: no joint enlargement and no pedal edema Neuro: COMMON NORMALS: moves all extremities SENSORIUM/ORIENTATION: No lethargic Skin: COMMON NORMALS: no rashes or lesions noted NARRATIVE SKIN EXAM: Erythema right lower extremity. Left lower extremity dressing in place. GENERAL SKIN EXAM: no rashes or lesions noted Urinary Catheter Management: Campbell: Cath Placed During This Visit: yes Reason for Continuing Indwelling Catheter: Accurate Measurement of Urinary Output in Critically Ill Patients Urinary Catheter Date of Insertion: 09/09/23 Urinary Catheter Time of Insertion: 19:00 Data 09/12/23 04:25 09/12/23 04:25 A&P Assessment and plan (1) Respiratory failure with hypoxia and hypercapnia: Continues to require 5 L nasal cannula oxygen. Reviewed vitals, CBC, CMP. Reviewed blood cultures, negative so far. Urine bacterial antigens and urine Legionella antigens negative. Continue antibiotic treatment with meropenem, linezolid. Monitor for risk of seizure with meropenem, risk of adrenal cytosis with linezolid. Recheck blood counts. Wean down oxygen as tolerating. Continue BiPAP support as needed, wean down as tolerating. Reassess mental status. Continue treatment of pneumonia. Transfer out of intensive care unit. Discussed with case management coordinator. Not baseline oxygen. Currently requiring up to 3 L. ABG showing hypercapnia and hypoxia with mild respiratory acidosis. Appreciate CTA chest results. Concerns for mild consolidation versus atelectasis. Echocardiogram done. Results pending. Sputum culture not yet collected. History of infections with Pseudomonas and MRSA. Continue with IV meropenem and linezolid as patient is allergic to vancomycin. Will de-escalate antibiotics as per culture results. Echocardiogram results pending. Continues Campbell catheterization. Cheetah shows patient to be alert responsive. Started on IV fluids as above. Watch for fluid overload.Check echocardiogram. (2) Encephalopathy: Appears to show improving mental status, more alert, although still somewhat slowed responses, not very conversant, denies discomfort. Per history obtained from nursing staff, she has been more alert, has not had any complaints. Gradually improving. Reviewed ammonia, noted with improvement. Follow-up level. Concern for hepatic encephalopathy, continue lactulose. She has been having bowel movements. Was more awake later this afternoon. Most likely in setting of hepatic encephalopathy. Patient does have transaminitis. Also had hypercapnia on admission. Follow-up ammonia levels. ABG. Lactulose 20 mg every 12 hourly. Continue with home dose of risperidone. (3) Septic shock: Resolved. Off pressor. Monitor vitals. Continue treatment of pneumonia. Cellulitis of lower extremity. Continue meropenem, monitor for risk of seizure, continue linezolid, monitor for risk of agranulocytosis, recheck CBC. Stop albumin Discussed with case management coordinator. SIRS: Septic shock, leukocytosis Source: Pneumonia/cellulitis End organ damage: Acute infectious encephalopathy??Transaminitis Concerns for pneumonia on CTA. Also has cellulitis of lower limb. CT abdomen pelvis concern for ventral hernia with possible strangulation. Appreciate surgery input. No concerns for strangulation for now. (4) UTI (urinary tract infection): Reviewed urine culture, normal antonia. Complains of mild dysuria. Appreciate UA. Follow-up urine culture. Antibiotics as above. (5) Transaminitis: Not sure of the cause. Appreciate liver ultrasound. No gallbladder pathology. Check hepatitis panel. (6) Hyponatremia: Reviewed sodium, resolved. (7) Hyperkalemia: Resolved. (8) Left leg cellulitis: Follows up with wound care. Does also have right lower extremity cellulitis above the ankle. Continue wound care dressing as per recommendations. Antibiotics as above. (9) Essential (primary) hypertension: Goal blood pressure less than 140/90 mmHg. Currently in septic shock. Hold off on antihypertensives. Will restart antihypertensive medications once blood pressure more stable. (10) Non-healing wound of left lower extremity: Plan Hypokalemia: Replace. CODE STATUS: Reviewed the paperwork from alf. Discussed in detail with patient's DPOA Mr. Shahid. CODE STATUS changed to DNR/DNI. Cardiac diet. Protonix for PUD prophylaxis Heparin 5000 every 12 hourly for DVT prophylaxis. Attestations 2 Medical Necessity Statement*: Continue admission for assessment management of respiratory failure, pneumonia, cellulitis, acute encephalopathy. and High MDM includes amount and/or complexity of data reviewed/ordered [ resulted lab(s)/test(s), ordered lab(s)/test(s), independent historian and other healthcare professional discussion] and described risk of complication, morbidity or mortality of management as documented Diagnoses Respiratory failure with hypoxia and hypercapnia J96.91; J96.92 Encephalopathy G93.40 Septic shock A41.9; R65.21 UTI (urinary tract infection) N39.0 Transaminitis R74.01 Hyponatremia E87.1 Hyperkalemia E87.5 Left leg cellulitis L03.116 Essential (primary) hypertension I10 Non-healing wound of left lower extremity S81.802A
[2023-09-12] MEDS: potassium chloride ER 20 mEq Tablet PO (22:01)
[2023-09-12] MEDS: risperiDONE 0.25 mg Tablet PO (22:01)
[2023-09-13] VITALS (8 sets, daily range): BP systolic 120–148; BP diastolic 59–83; PULSE 97–127; RESP 16–22; TEMP 36.8–37.7; O2SAT 92–98; BMI 31.8
[2023-09-13 04:32] LABS: Basophils % 0.5 %; Eosinophils # 1.3 10^3/uL (0.0-0.8); Eosinophils % 14.9 %; Hematocrit 33.8 % (36-47); Lymphocytes % 11.3 %; Mean Corpuscular Hemoglobin 29.8 pg (27-33); Mean Corpuscular Volume 93.4 fl (85-98); Mean Platelet Volume 8.4 fL (7.4-10.4); Monocytes # 0.9 10^3/uL (0.2-0.9); Monocytes % 9.7 %; Neutrophils # 5.52 10^3/uL (1.8-7.7); Neutrophils % 62.6 %; Nucleated Red Blood Cells % 0 %; Platelet Count 195 10^3/cmm (157-399); Red Blood Count 3.62 10^6/uL (3.85-5.65); Red Cell Distribution Width 13.9 % (12.1-15.1); White Blood Count 8.83 10^3/uL (3.29-11.43)
[2023-09-13 04:49] LABS: Ammonia 33 umol/L (11-51)
[2023-09-13 04:51] LABS: Alanine Aminotransferase 28 U/L (0-33); Albumin Level 3.8 g/dL (3.5-5.2); Alkaline Phosphatase 176 U/L (35-105); Anion Gap 12.5 (5-19); Aspartate Amino Transferase 16 U/L (0-32); Blood Urea Nitrogen 16 mg/dL (8-23); Calcium 10.2 mg/dL (8.5-10.5); Carbon Dioxide 38 mmol/L (22-29); Chloride 90 mmol/L (98-107); Creatinine Clr Calc Pharmacy 54.1782; Globulin 2.6 g/dL (1.3-4.6); Glucose 86 mg/dL (65-115); Osmolality Calculated 284 mOsm/kg (285-295); Potassium 3.5 mmol/L (3.5-5.1); Sodium 137 mmol/L (136-145); Total Bilirubin 0.9 mg/dL (0.15-1.2); Total Protein 6.4 g/dL (6.6-8.7)
[2023-09-13] MEDS: folic acid 1 mg Tablet PO (06:22)
[2023-09-13] MEDS: pantoprazole DR 40 mg Tablet PO (06:22)
[2023-09-13] MEDS: acetaminophen 325 mg Tablet 650 MG PO ×2 (08:28→23:06)
[2023-09-13] MEDS: lactulose oral liq 20 gm/30 mL UDC PO ×2 (08:29→14:19)
[2023-09-13] MEDS: gabapentin 100 mg Capsule 200 MG PO ×2 (08:30→17:31)
[2023-09-13] MEDS: oxybutynin 5 mg Tablet PO ×2 (08:30→17:31)
[2023-09-13] MEDS: linezolid premix 600 MG/300 ML PREMIX 300 MG IV ×2 (08:30→21:54)
[2023-09-13] MEDS: heparin 5,000 unit/mL INJ 1 mL 5000 UNIT SUBCUT ×2 (08:30→21:19)
--- NOTE | 2023-09-13 08:57 | PC.NURSE ---
Tylenol 650mg given for temp 99.7. Pt covers taken off except for her sheet.
--- NOTE | 2023-09-13 09:30 | PC.NURSE ---
Pt's heart rate has sustained around [address] Earl advised.
[2023-09-13] MEDS: meropenem 1,000 MG in sodium chloride 0.9% (plus) 50 ML 100 MG IV ×2 (09:35→21:19)
--- NOTE | 2023-09-13 09:36 | ECG_ITS ---
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 Measurements Intervals [place] Rate: 126 P: 21 FL: 166 QRS: -31 QRSD: 100 T: 34 QT: 292 QTc: 424 Interpretive Statements SINUS TACHYCARDIA LEFT AXIS DEVIATION [QRS AXIS < -30] POSSIBLE ANTERIOR MYOCARDIAL INFARCTION , OF INDETERMINATE AGE [30 ms Q WAVE IN V3/V4, OR R < 0.2 mV IN V4] Compared to ECG 09/09/2023 21:45:44 Left-axis deviation now present Myocardial infarct finding still present Electronically Signed On 09-13-2023 23:53:23 CDT by Carlo Armas M.D. [id number]
--- NOTE | 2023-09-13 10:28 | PC.SOCIAL ---
IMM Update pg 2 of IMM updated and reviewed w/ patient. Copy provided and copy dated, initialed and placed in chart.
--- NOTE | 2023-09-13 12:58 | P.PN_ITS ---
Subjective 2 Subjective: She reports she is feeling not the best but overall improving. She is more alert, more interactive. Vitals/I&O/Wt Last Vital Signs Temp 99.8 F H 09/13/23 11:25 Pulse 115 H 09/13/23 11:25 Resp 16 09/13/23 11:25 BP 147/72 09/13/23 11:25 Pulse Ox 98 09/13/23 11:25 O2 Del Method Nasal Cannula 09/13/23 11:25 O2 Flow Rate 5 09/13/23 08:23 FiO2 40 09/12/23 02:25 09/12/23 09/13/23 09/13/23 22:59 06:59 14:59 Intake Total 170 / 620 350 / 970 640 / 640 Output Total 50 / 250 350 / 600 Balance 120 / 370 0 / 370 640 / 640 Weight last 48 hrs Weight 64.41 kg Weight 64.41 kg Weight 62 kg Weight 63 kg Physical Exam 2 Const: COMMON NORMALS: alert GENERAL APPEARANCE: cooperative; not lethargic ORIENTATION/CONSCIOUSNESS: Yes awake; not lethargic HENMT: COMMON NORMALS: oropharynx normal Neck/C-Spine: COMMON NORMALS: no JVD Resp: COMMON NORMALS: normal respiratory effort and clear to auscultation bilaterally AUSCULTATION: clear to auscultation bilaterally, wheezes (Mild) and diminished lung sounds Cardio: COMMON NORMALS: no JVD, regular rhythm, S1 normal heart sound present, S2 normal heart sound present and No murmurs present (Cardio) RHYTHM: regular rhythm HEART SOUNDS: S1 normal heart sound present and S2 normal heart sound present GI: COMMON NORMALS: Normal to inspection, nondistended, normoactive bowel sounds present, Soft to palpation and non-tender PALPATION: Yes Soft to palpation Extremity: COMMON NORMALS: no joint enlargement and no pedal edema Neuro: COMMON NORMALS: moves all extremities SENSORIUM/ORIENTATION: Yes alert and No lethargic Skin: COMMON NORMALS: no rashes or lesions noted NARRATIVE SKIN EXAM: ResolvingErythema right lower extremity. Left lower extremity posterior ulceration without surrounding erythema, mostly clean base with very thin layer of slough. GENERAL SKIN EXAM: no rashes or lesions noted Urinary Catheter Management: Campbell: Cath Placed During This Visit: yes Reason for Continuing Indwelling Catheter: Other Urinary Catheter Date of Insertion: 03/23/24 Urinary Catheter Time of Insertion: 19:00 Data 09/13/23 04:26 09/13/23 04:26 A&P Assessment and plan (1) Respiratory failure with hypoxia and hypercapnia: So far without improvement in oxygen requirement. Spiking fever today. Cellulitis noted to be improving. Still generally weak. Denies cough with oral intake. Discussed with speech therapist, appreciate recommendations. Continue dysphagia diet, advance to pur?e. Reviewed vitals, CBC, CMP, blood culture, blood culture without growth. Continue treatment of pneumonia. With persistent hypoxic respiratory failure repeat chest x-ray. Continues to require 5 L nasal cannula oxygen. Reviewed vitals, CBC, CMP. Reviewed blood cultures, negative so far. Urine bacterial antigens and urine Legionella antigens negative. Continue antibiotic treatment with meropenem, linezolid. Monitor for risk of seizure with meropenem, risk of adrenal cytosis with linezolid. Recheck blood counts. Wean down oxygen as tolerating. Continue BiPAP support as needed, wean down as tolerating. Reassess mental status. Continue treatment of pneumonia. Transfer out of intensive care unit. Discussed with classification case manager. Not baseline oxygen. Appreciate CTA chest results. Concerns for mild consolidation versus atelectasis. Echocardiogram done. Results pending. Sputum culture not yet collected. History of infections with Pseudomonas and MRSA. Continue with IV meropenem and linezolid as patient is allergic to vancomycin. Echocardiogram results Reviewed. Continues Campbell catheterization. (2) Encephalopathy: Resolving encephalopathy. She is more awake, alert, interactive. Reviewed ammonia, normalized. Reviewed CMP, transaminases normalized, T. bili is normal. Alk phos improving. Reviewed liver ultrasound, liver unremarkable. Possibly some component of transient liver dysfunction/shock liver with epic shock with improvement. Continue to monitor mental status. Discussed with classification case manager. Appears to show improving mental status, more alert, although still somewhat slowed responses, not very conversant, denies discomfort. Per history obtained from nursing staff, she has been more alert, has not had any complaints. Gradually improving. Reviewed ammonia, noted with improvement. Follow-up level. Concern for hepatic encephalopathy, continue lactulose. She has been having bowel movements. Was more awake later this afternoon. Most likely in setting of hepatic encephalopathy. Patient does have transaminitis. Also had hypercapnia on admission. Follow-up ammonia levels. ABG. Lactulose 20 mg every 12 hourly. Continue with home dose of risperidone. (3) Septic shock: Resolved. Off pressor. Monitor vitals. Continue treatment of pneumonia. Cellulitis of lower extremity. Continue meropenem, monitor for risk of seizure, continue linezolid, monitor for risk of agranulocytosis, recheck CBC. Stop albumin Discussed with classification case manager. SIRS: Septic shock, leukocytosis Source: Pneumonia/cellulitis End organ damage: Acute infectious encephalopathy??Transaminitis Concerns for pneumonia on CTA. Also has cellulitis of lower limb. CT abdomen pelvis concern for ventral hernia with possible strangulation. Appreciate surgery input. No concerns for strangulation for now. (4) UTI (urinary tract infection): Reviewed urine culture, normal antonia. (5) Transaminitis: Resolved. Likely in the setting of septic shock. Appreciate liver ultrasound. No gallbladder pathology. (6) Hyponatremia: Reviewed sodium, resolved. (7) Hyperkalemia: Resolved. (8) Left leg cellulitis: Follows up with wound care. Does also have right lower extremity cellulitis above the ankle. Continue wound care dressing as per recommendations. Antibiotics as above. (9) Essential (primary) hypertension: Goal blood pressure less than 140/90 mmHg. Currently in septic shock. Hold off on antihypertensives. Will restart antihypertensive medications once blood pressure more stable. (10) Non-healing wound of left lower extremity: (11) Goals of care, counseling/discussion: Extensive discussion regarding her condition, baseline level of functioning with her DPOA. Earlier discussed with physical therapist. At baseline she requires nearly complete assistance. She is also legally blind. Her DPOA states that she has not had a good quality of life. She mostly sits down in front of the TV, although he is not sure if she is getting mattress due to blindness she is not watching it. However, currently she has been showing gradual improvement. Family inquiring regarding consideration of future goals of care, prognosis, difficult to state at this time, but certainly with overall functional decline is at risk of additional comorbidities, recurrent infections, encephalopathy, other events that may contribute to further deterioration of condition and function, possibly eventually leading to demise. However, timing of this is certainly difficult to predict. Symptoms does not appear to carry a diagnosis qualifying her for hospice, however, we discussed that goals of care consideration is certainly a good idea, and further consideration can revisited with primary care provider as well as custodial, including consideration of plans in case of recurrence of any severe acute illness, further deterioration, consideration of whether to pursue hospitalization in the future versus transition to comfort measures in case of overall downtrend in health. Plan Hypokalemia: Replace. Legally blind CODE STATUS: Reviewed the paperwork from custodial. Discussed in detail with patient's DPOA Mr. Shahid. CODE STATUS changed to DNR/DNI. Cardiac diet. Protonix for PUD prophylaxis Heparin 5000 every 12 hourly for DVT prophylaxis. Attestations 2 Medical Necessity Statement*: Continue admission for assessment and management of respiratory failure. Diagnoses Respiratory failure with hypoxia and hypercapnia J96.91; J96.92 Encephalopathy G93.40 Septic shock A41.9; R65.21 UTI (urinary tract infection) N39.0 Transaminitis R74.01 Hyponatremia E87.1 Hyperkalemia E87.5 Left leg cellulitis L03.116 Essential (primary) hypertension I10 Non-healing wound of left lower extremity S81.802A Goals of care, counseling/discussion Z71.89
[2023-09-13] MEDS: risperiDONE 0.25 mg Tablet PO (21:19)
[2023-09-14] VITALS (11 sets, daily range): BP systolic 109–153; BP diastolic 67–93; PULSE 85–110; RESP 16–26; TEMP 36.6–37.2; O2SAT 91–100
[2023-09-14 04:58] LABS: Basophils % 0.4 %; Eosinophils # 0.9 10^3/uL (0.0-0.8); Eosinophils % 10.1 %; Hematocrit 35.9 % (36-47); Lymphocytes # 1.2 10^3/uL (0.8-4.8); Lymphocytes % 13.4 %; Mean Corpuscular HGB Conc 31.2 g/dL (30-55); Mean Corpuscular Hemoglobin 29.8 pg (27-33); Mean Corpuscular Volume 95.5 fl (85-98); Mean Platelet Volume 8.8 fL (7.4-10.4); Monocytes # 1.1 10^3/uL (0.2-0.9); Monocytes % 12.6 %; Neutrophils # 5.64 10^3/uL (1.8-7.7); Neutrophils % 62.5 %; Nucleated Red Blood Cells % 0 %; Platelet Count 204 10^3/cmm (157-399); Red Blood Count 3.76 10^6/uL (3.85-5.65); Red Cell Distribution Width 13.8 % (12.1-15.1); White Blood Count 9.03 10^3/uL (3.29-11.43)
[2023-09-14 05:23] LABS: Alanine Aminotransferase 20 U/L (0-33); Albumin Level 3.7 g/dL (3.5-5.2); Alkaline Phosphatase 163 U/L (35-105); Anion Gap 11.5 (5-19); Aspartate Amino Transferase 13 U/L (0-32); Blood Urea Nitrogen 14 mg/dL (8-23); Carbon Dioxide 39 mmol/L (22-29); Chloride 89 mmol/L (98-107); Creatinine Clr Calc Pharmacy 54.1782; Globulin 2.6 g/dL (1.3-4.6); Glucose 103 mg/dL (65-115); Osmolality Calculated 283 mOsm/kg (285-295); Potassium 3.5 mmol/L (3.5-5.1); Sodium 136 mmol/L (136-145); Total Bilirubin 0.8 mg/dL (0.15-1.2); Total Protein 6.3 g/dL (6.6-8.7)
[2023-09-14] MEDS: pantoprazole DR 40 mg Tablet PO (05:58)
[2023-09-14] MEDS: folic acid 1 mg Tablet PO (05:58)
--- NOTE | 2023-09-14 06:00 | XR_ITS ---
WS: [id number] Exam: XR chest 1V portable [id number] Date/Time of Exam: 09/14/2023 10:47 AM Reason For Exam: Hypoxia Comparison 09/09/2023. There are mild infiltrates in the mid and lower bilateral lung zones. Mild cardiac enlargement unchan ged. No pneumothorax. No pleural effusion. The mediastinum is normal in contour. Bony structures are intact. Degenerative changes of the bilateral shoulders. IMPRESSION: 1. Mild infiltrates in the mid and lower bilateral lung zones. Developing pneumonia not excluded. 2. Mild cardiac enlargement unchanged.
[2023-09-14] MEDS: oxybutynin 5 mg Tablet PO ×2 (08:19→18:04)
[2023-09-14] MEDS: gabapentin 100 mg Capsule 200 MG PO ×2 (08:19→18:04)
[2023-09-14] MEDS: linezolid premix 600 MG/300 ML PREMIX 300 MG IV ×2 (08:21→20:17)
[2023-09-14] MEDS: ipratropium-albuterol 3 mL Neb INHALATION (09:11)
[2023-09-14] MEDS: heparin 5,000 unit/mL INJ 1 mL 5000 UNIT SUBCUT ×2 (09:43→21:41)
[2023-09-14] MEDS: meropenem 1,000 MG in sodium chloride 0.9% (plus) 50 ML 100 MG IV ×2 (09:43→21:41)
[2023-09-14] MEDS: lactulose oral liq 20 gm/30 mL UDC PO ×2 (14:25→20:16)
[2023-09-14] MEDS: risperiDONE 0.25 mg Tablet PO (20:16)
[2023-09-15] VITALS (11 sets, daily range): BP systolic 95–124; BP diastolic 56–63; PULSE 87–100; RESP 16–24; TEMP 36.3–36.8; O2SAT 91–99; BMI 31.8
--- NOTE | 2023-09-15 00:28 | P.PN_ITS ---
Subjective 2 Subjective: She is overall not feeling the best, but slightly better. Breathing is still bothering her. Vitals/I&O/Wt Last Vital Signs Temp 99.0 F 09/14/23 23:43 Pulse 100 09/14/23 23:43 Resp 20 H 09/14/23 23:43 BP 147/93 09/14/23 23:43 Pulse Ox 91 09/14/23 23:43 O2 Del Method Nasal Cannula 09/14/23 23:43 O2 Flow Rate 5 09/14/23 23:43 FiO2 40 09/12/23 02:25 09/14/23 09/14/23 09/15/23 14:59 22:59 06:59 Intake Total 510 / 510 570 / 1080 Output Total 550 / 550 Balance 510 / 510 20 / 530 Weight last 48 hrs Weight 64.41 kg Weight 64.41 kg Weight 64.41 kg Physical Exam 2 Const: COMMON NORMALS: patient oriented x3 and alert GENERAL APPEARANCE: c ooperative; not lethargic ORIENTATION/CONSCIOUSNESS: Yes awake; not lethargic HENMT: COMMON NORMALS: oropharynx normal Neck/C-Spine: COMMON NORMALS: no JVD Resp: COMMON NORMALS: normal respiratory effort and clear to auscultation bilaterally AUSCULTATION: clear to auscultation bilaterally, wheezes (Mild) and diminished lung sounds Cardio: COMMON NORMALS: no JVD, regular rhythm, S1 normal heart sound present, S2 normal heart sound present and No murmurs present (Cardio) RHYTHM: regular rhythm HEART SOUNDS: S1 normal heart sound present and S2 normal heart sound present GI: COMMON NORMALS: Normal to inspection, nondistended, normoactive bowel sounds present, Soft to palpation and non-tender PALPATION: Yes Soft to palpation Extremity: COMMON NORMALS: no joint enlargement and no pedal edema Neuro: COMMON NORMALS: patient oriented x3 and moves all extremities S ENSORIUM/ORIENTATION: Yes alert and No lethargic Skin: COMMON NORMALS: no rashes or lesions noted NARRATIVE SKIN EXAM: ResolvingErythema right lower extremity. Left lower extremity posterior ulceration without surrounding erythema, mostly clean base with very thin layer of slough. GENERAL SKIN EXAM: no rashes or lesions noted Urinary Catheter Management: Campbell: Cath Placed During This Visit: yes Reason for Continuing Indwelling Catheter: Other Urinary Catheter Date of Insertion: 09/09/23 Urinary Catheter Time of Insertion: 19:00 Data 09/14/23 04:02 09/14/23 04:02 Micro: Microbiology 09/09/23 17:26 Blood Culture - Final Blood NO GROWTH AFTER 5 DAYS 09/09/23 17:20 Blood Culture - Final Blood NO GROWTH AFTER 5 DAYS A&P Assessment and plan (1) Respiratory failure with hypoxia and hypercapnia: Reviewed vitals, CBC, CMP, initially noted some improvement in O2 requirement down to 4 L, but this appears to been transient and she had to be increased back up to 5 L due to desaturation later in the morning. Reviewed chest x-ray, noted some persistence of cardiomegaly, congestive changes, will give a dose of 20 mg IV Lasix. Reassess volume status, electrolytes, at risk of electrolyte deficiency with IV diuretic, recheck chemistry. Continue treatment of pneumonia. Reviewed speech therapy note, recommendation for extremely thick/pur?ed, regular liquids.Continue aspiration precautions. Continue to wean down oxygen support as tolerating. Discussed with registered nurse hh case manager. Continues to require 5 L nasal cannula oxygen. Also noted pulmonary hypertension on TTE. Continue antibiotic treatment with meropenem, linezolid. Monitor for risk of seizure with meropenem, risk of adrenal cytosis with linezolid. Recheck blood counts. Not baseline oxygen. Appreciate CTA chest results. Concerns for mild consolidation versus atelectasis. Echocardiogram done. Results pending. Sputum culture not yet collected. History of infections with Pseudomonas and MRSA. Continue with IV meropenem and linezolid as patient is allergic to vancomycin. Echocardiogram results Reviewed. Continues Campbell catheterization. (2) Encephalopathy: Resolving encephalopathy. She is more awake, alert, interactive. Reviewed ammonia, normalized. Reviewed CMP, transaminases normalized, T. bili is normal. Alk phos improving. Reviewed liver ultrasound, liver unremarkable. Possibly some component of transient liver dysfunction/shock liver with epic shock with improvement. Continue to monitor mental status. Discussed with registered nurse hh case manager. Appears to show improving mental status, more alert, although still somewhat slowed responses, not very conversant, denies discomfort. Per history obtained from nursing staff, she has been more alert, has not had any complaints. Gradually improving. Reviewed ammonia, noted with improvement. Follow-up level. Concern for hepatic encephalopathy, continue lactulose. She has been having bowel movements. Was more awake later this afternoon. Most likely in setting of hepatic encephalopathy. Patient does have transaminitis. Also had hypercapnia on admission. Follow-up ammonia levels. ABG. Lactulose 20 mg every 12 hourly. Continue with home dose of risperidone. (3) Septic shock: Resolved. Off pressor. Monitor vitals. Continue treatment of pneumonia. Cellulitis of lower extremity. Continue meropenem, monitor for risk of seizure, continue linezolid, monitor for risk of agranulocytosis, recheck CBC. Stop albumin Discussed with registered nurse hh case manager. SIRS: Septic shock, leukocytosis Source: Pneumonia/cellulitis End organ damage: Acute infectious encephalopathy??Transaminitis Concerns for pneumonia on CTA. Also has cellulitis of lower limb. CT abdomen pelvis concern for ventral hernia with possible strangulation. Appreciate surgery input. No concerns for strangulation for now. (4) UTI (urinary tract infection): Reviewed urine culture, normal antonia. (5) Transaminitis: Resolved. Likely in the setting of septic shock. Appreciate liver ultrasound. No gallbladder pathology. (6) Hyponatremia: Reviewed sodium, resolved. (7) Hyperkalemia: Resolved. (8) Left leg cellulitis: Follows up with wound care. Does also have right lower extremity cellulitis above the ankle. Continue wound care dressing as per recommendations. Antibiotics as above. (9) Essential (primary) hypertension: Goal blood pressure less than 140/90 mmHg. Currently in septic shock. Hold off on antihypertensives. Will restart antihypertensive medications once blood pressure more stable. (10) Non-healing wound of left lower extremity: (11) Goals of care, counseling/discussion: Extensive discussion regarding her condition, baseline level of functioning with her DPOA. Earlier discussed with physical therapist. At baseline she requires nearly complete assistance. She is also legally blind. Her DPOA states that she has not had a good quality of life. She mostly sits down in front of the TV, although he is not sure if she is getting mattress due to blindness she is not watching it. However, currently she has been showing gradual improvement. Family inquiring regarding consideration of future goals of care, prognosis, difficult to state at this time, but certainly with overall functional decline is at risk of additional comorbidities, recurrent infections, encephalopathy, other events that may contribute to further deterioration of condition and function, possibly eventually leading to demise. However, timing of this is certainly difficult to predict. Symptoms does not appear to carry a diagnosis qualifying her for hospice, however, we discussed that goals of care consideration is certainly a good idea, and further consideration can revisited with primary care provider as well as [facility], including consideration of plans in case of recurrence of any severe acute illness, further deterioration, consideration of whether to pursue hospitalization in the future versus transition to comfort measures in case of overall downtrend in health. Plan Hypokalemia: Replace. Legally blind CODE STATUS: Reviewed the paperwork from [facility]. Discussed in detail with patient's DPOA Mr. Shahid. CODE STATUS changed to DNR/DNI. Cardiac diet. Protonix for PUD prophylaxis Heparin 5000 every 12 hourly for DVT prophylaxis. Attestations 2 Medical Necessity Statement*: Continue admission for assessment management of respiratory failure, pneumonia. and High MDM includes amount and/or complexity of data reviewed/ordered [ previous or external records, resulted lab(s)/test(s), ordered lab(s)/test(s) and other healthcare professional discussion] as documented Diagnoses Respiratory failure with hypoxia and hypercapnia J96.91; J96.92 Encephalopathy G93.40 Septic shock A41.9; R65.21 UTI (urinary tract infection) N39.0 Transaminitis R74.01 Hyponatremia E87.1 Hyperkalemia E87.5 Left leg cellulitis L03.116 Essential (primary) hypertension I10 Non-healing wound of left lower extremity S81.802A Goals of care, counseling/discussion Z71.89
[2023-09-15] MEDS: FUROsemide 10 mg/mL SDV 2mL 20 MG IVP (01:36)
[2023-09-15] MEDS: folic acid 1 mg Tablet PO (05:31)
[2023-09-15] MEDS: pantoprazole DR 40 mg Tablet PO (05:31)
[2023-09-15] MEDS: heparin 5,000 unit/mL INJ 1 mL 5000 UNIT SUBCUT ×2 (08:27→20:51)
[2023-09-15] MEDS: oxybutynin 5 mg Tablet PO ×2 (08:27→16:20)
[2023-09-15] MEDS: gabapentin 100 mg Capsule 200 MG PO ×2 (08:27→16:20)
[2023-09-15] MEDS: linezolid premix 600 MG/300 ML PREMIX 300 MG IV ×2 (08:27→20:52)
[2023-09-15] MEDS: lactulose oral liq 20 gm/30 mL UDC PO ×3 (08:27→20:50)
[2023-09-15] MEDS: morphine 4 mg/mL SDV 1 mL 2 MG IVP (08:35)
--- NOTE | 2023-09-15 11:19 | PC.SOCIAL ---
IMM Update pg 2 of IMM updated and reviewed w/ patient and friends. Copy left @ bedside and copy dated, initialed and placed in chart.
--- NOTE | 2023-09-15 11:36 | ECG_ITS ---
[facility] Test Date: 2023-09-15 Pat Name: Yoly Piedra Department: Room: 266 Gender: Female General Surgery Physician Assistant: : 1940 Requested By: Jarad Earl Order Number: [id number] Candelario MD: Stephen Quigley M.D. Measurements Intervals [place] Rate: 97 P: 13 [place]: 180 QRS: -25 QRSD: 87 T: 11 QT: 339 QTc: 432 Interpretive Statements SINUS RHYTHM MODERATE VOLTAGE CRITERIA FOR LVH, CONSIDER NORMAL VARIANT [MEETS CRITERIA IN ONE OF: R(aVL), S(V1), R(V5), R(V5/V6)+S(V1)] POSSIBLE ANTERIOR MYOCARDIAL INFARCTION , OF INDETERMINATE AGE [30 ms Q WAVE IN V3/V4, OR R < 0.2 mV IN V4] Compared to ECG 09/13/2023 09:36:06 Sinus tachycardia no longer present Left-axis deviation no longer present Myocardial infarct finding still present Electronically Signed On 09-15-2023 12:29:45 CDT by Stephen Quigley M.D. [id number]
[2023-09-15 12:54] LABS: Troponin(5th) Baseline 23 ng/L (0-10)
--- NOTE | 2023-09-15 13:36 | ECG_ITS ---
[facility] Test Date: 2023-09-15 Pat Name: Yoly Piedra Department: Room: 266 Gender: Female Expansion Joint Finisher: : 1940 Requested By: Jarad Earl Order Number: [id number] Candelario MD: Stephen Quigley M.D. Measurements Intervals [place] Rate: 97 P: 18 NM: 170 QRS: -22 QRSD: 96 T: 25 QT: 347 QTc: 441 Interpretive Statements SINUS RHYTHM POSSIBLE LEFT ATRIAL ENLARGEMENT [-0.1mV P-WAVE IN V1/V2] POSSIBLE LEFT VENTRICULAR HYPERTROPHY [VOLTAGE CRITERIA PLUS LAE OR QRS WIDENING] POSSIBLE ANTERIOR MYOCARDIAL INFARCTION , OF INDETERMINATE AGE [30 ms Q WAVE IN V3/V4, OR R < 0.2 mV IN V4] Compared to ECG 09/15/2023 12:02:23 No significant changes Electronically Signed On 09-15-2023 22:53:45 CDT by Stephen Quigley M.D. [id number]
[2023-09-15] MEDS: meropenem 1,000 MG in sodium chloride 0.9% (plus) 50 ML 100 MG IV ×2 (13:38→22:06)
--- NOTE | 2023-09-15 16:18 | PM.PN ---
Subjective Subjective: She is having chest pressure today. Vitals/I&O/Wt Last Vital Signs Temp 97.7 F 09/15/23 12:00 Pulse 97 09/15/23 12:00 Resp 16 09/15/23 12:00 BP 95/56 09/15/23 12:00 Pulse Ox 96 09/15/23 12:00 O2 Del Method Nasal Cannula 09/15/23 12:00 O2 Flow Rate 6 09/15/23 12:00 FiO2 40 09/12/23 02:25 09/15/23 09/15/23 09/15/23 06:59 14:59 22:59 Intake Total 400 / 400 Output Total 1400 / 1950 Balance -1400 / -870 400 / 400 Weight last 48 hrs Weight 64.41 kg Weight 64.41 kg Weight 64.41 kg Physical Exam Const: COMMON NORMALS: patient oriented x3 and alert GENERAL APPEARANCE: cooperative; not lethargic ORIENTATION/CONSCIOUSNESS: Yes awake; not lethargic HENMT: COMMON NORMALS: oropharynx normal Neck/C-Spine: COMMON NORMALS: no JVD Resp: COMMON NORMALS: normal respiratory effort and clear to auscultation bilaterally AUSCULTATION: clear to auscultation bilaterally, wheezes (Mild) and diminished lung sounds Cardio: COMMON NORMALS: no JVD, regular rhythm, S1 normal heart sound present, S2 normal heart sound present and No murmurs present (Cardio) RHYTHM: regular rhythm HEART SOUNDS: S1 normal heart sound present and S2 normal heart sound present GI: COMMON NORMALS: Normal to inspection, nondistended, normoactive bowel sounds present, Soft to palpation and non-tender PALPATION: Yes Soft to palpation Extremity: COMMON NORMALS: no joint enlargement and no pedal edema Neuro: COMMON NORMALS: patient oriented x3 and moves all extremities SENSORIUM/ORIENTATION: Yes alert and No lethargic Skin: COMMON NORMALS: no rashes or lesions noted NARRATIVE SKIN EXAM: Resolving erythema right lower extremity. Left lower extremity posterior ulceration without surrounding erythema, mostly clean base with very thin layer of slough. GENERAL SKIN EXAM: no rashes or lesions noted Urinary Catheter Management: Campbell: Cath Placed During This Visit: yes Reason for Continuing Indwelling Catheter: Other Urinary Catheter Date of Insertion: 09/09/23 Urinary Catheter Time of Insertion: 19:00 Data 09/14/23 04:02 09/14/23 04:02 Micro: Microbiology 09/09/23 17:26 Blood Culture - Final Blood NO GROWTH AFTER 5 DAYS 09/09/23 17:20 Blood Culture - Final Blood NO GROWTH AFTER 5 DAYS A&P Assessment and plan (1) Chest pressure: She is having chest pressure, no pain, breathing feels perhaps slightly better. Will obtain troponin EKG series. Reviewed vitals, chest x-ray. Monitor on telemetry. (2) Respiratory failure with hypoxia and hypercapnia: She is very weak. Encouraged incentive spirometer, weak NIF. Encourage I-S when possible. Continue treatment of pneumonia, meropenem, linezolid. Discussed with pillowcase folder. Chest X-ray reviewed and was given 20 mg IV Lasix x 1. Did seem to transiently show some improvement in oxygenation this morning, but this afternoon again needing 6 L nasal cannula. Blood pressure soft, hold off additional diuretic. Reassess vitals, chemistry. Continue treatment of pneumonia. Reviewed speech therapy note, recommendation for extremely thick/pur?ed, regular liquids. Continue aspiration precautions. Continue to wean down oxygen support as tolerating. Discussed with pillowcase folder. Continues to require 5 L nasal cannula oxygen. Also noted pulmonary hypertension on TTE. Not baseline oxygen. Appreciate CTA chest results. Concerns for mild consolidation versus atelectasis. Echocardiogram done. Results pending. History of infections with Pseudomonas and MRSA. Continue with IV meropenem and linezolid as patient is allergic to vancomycin. Echocardiogram results Reviewed. Continues Campbell catheterization. (3) Encephalopathy: Resolving encephalopathy. She is more awake, alert, interactive. Reviewed ammonia, normalized. Reviewed CMP, transaminases normalized, T. bili is normal. Alk phos improving. Reviewed liver ultrasound, liver unremarkable. Possibly some component of transient liver dysfunction/shock liver with epic shock with improvement. Continue to monitor mental status. Discussed with pillowcase folder. Appears to show improving mental status, more alert, although still somewhat slowed responses, not very conversant, denies discomfort. Per history obtained from nursing staff, she has been more alert, has not had any complaints. Gradually improving. Reviewed ammonia, noted with improvement. Follow-up level. Concern for hepatic encephalopathy, continue lactulose. She has been having bowel movements. Was more awake later this afternoon. Most likely in setting of hepatic encephalopathy. Patient does have transaminitis. Also had hypercapnia on admission. Follow-up ammonia levels. ABG. Lactulose 20 mg every 12 hourly. Continue with home dose of risperidone. (4) Septic shock: Resolved. Off pressor. Monitor vitals. Continue treatment of pneumonia. Cellulitis of lower extremity. Continue meropenem, monitor for risk of seizure, continue linezolid, monitor for risk of agranulocytosis, recheck CBC. Stop albumin Discussed with pillowcase folder. SIRS: Septic shock, leukocytosis Source: Pneumonia/cellulitis End organ damage: Acute infectious encephalopathy??Transaminitis Concerns for pneumonia on CTA. Also has cellulitis of lower limb. CT abdomen pelvis concern for ventral hernia with possible strangulation. Appreciate surgery input. No concerns for strangulation for now. (5) UTI (urinary tract infection): Reviewed urine culture, normal antonia. (6) Transaminitis: Resolved. Likely in the setting of septic shock. Appreciate liver ultrasound. No gallbladder pathology. (7) Hyponatremia: Reviewed sodium, resolved. (8) Hyperkalemia: Resolved. (9) Left leg cellulitis: Resolving. Follows up with wound care. Does also have right lower extremity cellulitis above the ankle. Continue wound care dressing as per recommendations. Antibiotics as above. (10) Essential (primary) hypertension: Goal blood pressure less than 140/90 mmHg. Currently in septic shock. Hold off on antihypertensives. Will restart antihypertensive medications once blood pressure more stable. (11) Non-healing wound of left lower extremity: (12) Goals of care, counseling/discussion: Extensive discussion regarding her condition, baseline level of functioning with her DPOA. Earlier discussed with physical therapist. At baseline she requires nearly complete assistance. She is also legally blind. Her DPOA states that she has not had a good quality of life. She mostly sits down in front of the TV, although he is not sure if she is getting mattress due to blindness she is not watching it. However, currently she has been showing gradual improvement. Family inquiring regarding consideration of future goals of care, prognosis, difficult to state at this time, but certainly with overall functional decline is at risk of additional comorbidities, recurrent infections, encephalopathy, other events that may contribute to further deterioration of condition and function, possibly eventually leading to demise. However, timing of this is certainly difficult to predict. Symptoms does not appear to carry a diagnosis qualifying her for hospice, however, we discussed that goals of care consideration is certainly a good idea, and further consideration can revisited with primary care provider as well as senior care, including consideration of plans in case of recurrence of any severe acute illness, further deterioration, consideration of whether to pursue hospitalization in the future versus transition to comfort measures in case of overall downtrend in health. Plan Hypokalemia: Replace. Repeat chemistry. Legally blind CODE STATUS: Reviewed the paperwork from senior care. Discussed in detail with patient's DPOA Mr. Shahid. CODE STATUS changed to DNR/DNI. Cardiac diet. Protonix for PUD prophylaxis Heparin 5000 every 12 hourly for DVT prophylaxis. Attestations Medical Necessity Statement*: Continue admission for assessment management of chest pressure, respiratory failure, pneumonia. and High MDM includes amount and/or complexity of data reviewed/ordered [ resulted lab(s)/test(s), ordered lab(s)/test(s) and other healthcare professional discussion] as documented Diagnoses Chest pressure R07.89 Respiratory failure with hypoxia and hypercapnia J96.91; J96.92 Encephalopathy G93.40 Septic shock A41.9; R65.21 UTI (urinary tract infection) N39.0 Transaminitis R74.01 Hyponatremia E87.1 Hyperkalemia E87.5 Left leg cellulitis L03.116 Essential (primary) hypertension I10 Non-healing wound of left lower extremity S81.802A Goals of care, counseling/discussion Z71.89
[2023-09-15] MEDS: acetaminophen 325 mg Tablet 650 MG PO (16:20)
[2023-09-15] MEDS: ondansetron 2 mg/ML SDV 2 mL 4 MG IVP (16:23)
[2023-09-15 17:01] LABS: Troponin 5 2HR 20.85 ng/L (0-10)
[2023-09-15 17:02] LABS: Troponin 5 2HR Delta -2.15 ABS# (0-10)
--- NOTE | 2023-09-15 17:12 | ECG_ITS ---
[facility] Test Date: 2023-09-15 Pat Name: Yoly Piedra Department: Room: 266 Gender: Female Deportation Examiner: : 1940 Requested By: Jarad Earl Order Number: [id number] Candelario MD: Stephen Quigley M.D. Measurements Intervals [place] Rate: 108 P: 16 MT: 164 QRS: -24 QRSD: 93 T: 40 QT: 335 QTc: 450 Interpretive Statements SINUS TACHYCARDIA MODERATE VOLTAGE CRITERIA FOR LVH, CONSIDER NORMAL VARIANT [MEETS CRITERIA IN ONE OF: R(aVL), S(V1), R(V5), R(V5/V6)+S(V1)] POSSIBLE ANTERIOR MYOCARDIAL INFARCTION , OF INDETERMINATE AGE [30 ms Q WAVE IN V3/V4, OR R < 0.2 mV IN V4] Compared to ECG 09/15/2023 15:04:04 Sinus rhythm no longer present Myocardial infarct finding still present Electronically Signed On 09-15-2023 22:52:50 CDT by Stephen Quigley M.D. [id number]
[2023-09-15 18:26] LABS: Troponin 5 6HR 22.87 ng/L (0-10)
[2023-09-15 18:36] LABS: Troponin 5 6HR Delta -0.13 ng/L (0-12)
[2023-09-15] MEDS: risperiDONE 0.25 mg Tablet PO (20:50)
[2023-09-16] VITALS (7 sets, daily range): BP systolic 83–123; BP diastolic 46–72; PULSE 94–102; RESP 17–24; TEMP 36.4–36.9; O2SAT 87–98
[2023-09-16 03:58] LABS: Anion Gap 6.7 (5-19); Blood Urea Nitrogen 14 mg/dL (8-23); Calcium 9.9 mg/dL (8.5-10.5); Chloride 89 mmol/L (98-107); Glucose 98 mg/dL (65-115); Osmolality Calculated 284 mOsm/kg (285-295); Potassium 3.7 mmol/L (3.5-5.1); Sodium 137 mmol/L (136-145)
[2023-09-16 04:02] LABS: Carbon Dioxide 45 mmol/L (22-29)
[2023-09-16] MEDS: pantoprazole DR 40 mg Tablet PO (05:12)
[2023-09-16] MEDS: folic acid 1 mg Tablet PO (05:12)
[2023-09-16] MEDS: linezolid premix 600 MG/300 ML PREMIX 300 MG IV (10:25)
[2023-09-16] MEDS: oxybutynin 5 mg Tablet PO (10:25)
[2023-09-16] MEDS: gabapentin 100 mg Capsule 200 MG PO (10:25)
[2023-09-16] MEDS: heparin 5,000 unit/mL INJ 1 mL 5000 UNIT SUBCUT (10:33)
--- NOTE | 2023-09-16 11:02 | PM.DCS ---
Discharge Providers Date of Admission: 09/09/23 17:33 Date of Discharge: September 16, 2023 Attending Provider at Admission: Luis Fernando Vargas MD Attending Provider at Discharge: Jarad Earl Diagnoses at Discharge Discharge Diagnosis (1) Chest pressure: Status: Acute (2) Respiratory failure with hypoxia and hypercapnia: Status: Acute (3) Encephalopathy: Status: Acute (4) Septic shock: Status: Acute (5) UTI (urinary tract infection): Status: Acute (6) Transaminitis: Status: Acute (7) Hyponatremia: Status: Acute (8) Hyperkalemia: Status: Acute (9) Left leg cellulitis: Status: Acute (10) Essential (primary) hypertension: Status: Acute (11) Non-healing wound of left lower extremity: Status: Acute (12) Goals of care, counseling/discussion: Status: Acute Reason for Visit Reason for Visit: SOB Hospital Course Hospital Course Pleasant 83-year-old lady with visual impairment/legal blindness, dementia, SNF resident, dependent on care, HTN, GERD, osteoporosis, TONNY, psychiatric history, other medical problems was admitted from prison due to shortness of breath, on presentation with respiratory failure with hypoxia and hypercapnia, not normally oxygen, but required oxygen support on presentation, with pneumonia, also with UTI, on presentation with hyponatremia, transaminitis, also with left leg posterior wound with surrounding cellulitis and right lower leg cellulitis. She was also diagnosed previously with congestive heart failure and due to component of CHF on admission also received IV diuretics transiently. Echocardiogram during hospitalization revealed normal ejection fraction 60-65%, mild MVR, mild to moderate MVS, mild AVS, mild TVR, moderate pulmonary hypertension as well. On admission presentation also complicated by acute encephalopathy secondary to the above conditions. CT abdomen pelvis incidentally found ventral abdominal hernia superior to the umbilicus containing short segment of transverse colon with associated mucosal thickening and minimal mesenteric inflammatory stranding in the region raising concern for strangulation, which was conferred with general surgery and found unlikely. She has had no abdominal tenderness or discomfort. During hospitalization she required transient treatment for septic shock, continue treatment with antibiotics with meropenem, linezolid for pneumonia, right lower extremity cellulitis, right posterior lower leg wound with surrounding cellulitis, cellulitis gradually resolved. Urinary culture eventually without growth. Transaminitis and hyponatremia resolved, suspected shock liver did have transient ammonia elevation which improved with lactulose, possibly transient liver dysfunction secondary to shock liver. Encephalopathy improved. Pneumonia with slow improvement. She has had slow recovery, generally weak, has lost a great deal of stamina. Was assessed by speech therapy with some risk of aspiration due to age started on dysphagia diet level 4, extremely thick and pur?ed with slightly thickened liquids. Continue aspiration precautions. She otherwise has been afebrile with leukocytosis resolved, no signs of ongoing sepsis. Overall improving pneumonia, however, prognosis is guarded given his overall weakness, overall functional decline with not a good functional baseline before her illness, without good prospects for rehabilitation, and with further deconditioning brought on by the current illness. Concerns about her overall prognosis were very well picked up on by her family who had the concerns previously as well with overall functional decline, worsening quality of life. They understand that although showing some improvement from the current illness, overall prognosis may not be good with her overall immobility, generalized weakness, risks of further deterioration, complicating illnesses, and they will be considering her overall goals of care upon return to her prison again. Her CODE STATUS had been AMD while in the hospital, they will further consider either if hospice is a possibility, otherwise continue supportive care, and consideration in case of recurrence of illness of possibly at that point initiating comfort measures without further invasive diagnosis or treatment with and without return to the hospital. Family will be discussing these considerations with prison and her primary provider. Please reassess for continued improvement of pneumonia, wean down oxygen as tolerated, maintain aspiration precautions, dysphagia diet, resolution of cellulitis on right lower extremity, wound healing posterior left lower leg. Offload heels/distal calf. Reposition frequently. Restorative therapy as tolerating, getting up, transfers, some ambulation if tolerating at least several times a week. Encourage frequent incentive spirometer use. Revisit goals of care. Consider hospice. Physical Exam Const: COMMON NORMALS: patient oriented x3 and alert GENERAL APPEARANCE: cooperative; not lethargic ORIENTATION/CONSCIOUSNESS: Yes awake; not lethargic HENMT: COMMON NORMALS: oropharynx normal Neck/C-Spine: COMMON NORMALS: no JVD Resp: COMMON NORMALS: normal respiratory effort and clear to auscultation bilaterally AUSCULTATION: clear to auscultation bilaterally, wheezes (Mild) and diminished lung sounds Cardio: COMMON NORMALS: no JVD, regular rhythm, S1 normal heart sound present, S2 normal heart sound present and No murmurs present (Cardio) RHYTHM: regular rhythm HEART SOUNDS: S1 normal heart sound present and S2 normal heart sound present GI: COMMON NORMALS: Normal to inspection, nondistended, normoactive bowel sounds present, Soft to palpation and non-tender PALPATION: Yes Soft to palpation Extremity: COMMON NORMALS: no joint enlargement and no pedal edema Neuro: COMMON NORMALS: patient oriented x3 and moves all extremities SENSORIUM/ORIENTATION: Yes alert and No lethargic Skin: COMMON NORMALS: no rashes or lesions noted NARRATIVE SKIN EXAM: Resolving erythema right lower extremity. Left lower extremity posterior ulceration without surrounding erythema, mostly clean base with very thin layer of slough. GENERAL SKIN EXAM: no rashes or lesions noted Urinary Catheter Management: Campbell: Cath Placed During This Visit: yes Reason for Continuing Indwelling Catheter: Other Urinary Catheter Date of Insertion: 09/09/23 Urinary Catheter Time of Insertion: 19:00 Discharge Data Studies Completed and Pending Completed Studies During Hospitalization Category Date Time Status CT angio chest w abd pel w con Stat Cat Scan 09/09/23 18:02 Completed XR chest 1V portable [id number] Routine Exams 09/14/23 06:00 Completed XR chest 1V portable [id number] Stat Exams 09/09/23 15:13 Completed CV. echo complete* [id number] Routine Ultrasound 09/10/23 06:00 Completed US liver [id number] Stat Ultrasound 09/09/23 17:38 Completed Pending at discharge Category Date Time Status Sputum Culture and Gram Stain Stat Lab 09/09/23 17:40 Uncollected Radiology Impressions Liver Ultrasound 09/09/23 17:38 IMPRESSION: No acute findings. Chest/Abdomen/Pelvis CT 09/09/23 18:02 IMPRESSION: 1. Consolidation at the posterior aspects of the lungs may represent prominent atelectatic change or pneumonia. 2. Heterogeneous right breast densities. Please correlate with mammography findings. IMPRESSION: There is a ventral abdominal hernia superior to the umbilicus containing a short segment of the transverse colon with associated mucosal thickening and minimal mesenteric inflammatory stranding in this region raising concern for strangulation. Laboratory Results WBC 9.03 10^3/uL (3.29-11.43) 09/14/23 04:02 RBC 3.76 10^6/uL (3.85-5.65) L 09/14/23 04:02 Hgb 11.20 g/dL (11.27-16.99) L 09/14/23 04:02 Hct 35.9 % (36-47) L 09/14/23 04:02 MCV 95.5 fl (85-98) 09/14/23 04:02 MCH 29.8 pg (27-33) 09/14/23 04:02 MCHC 31.2 g/dL (30-55) 09/14/23 04:02 RDW 13.8 % (12.1-15.1) 09/14/23 04:02 Plt Count 204 10^3/cmm (157-399) 09/14/23 04:02 MPV 8.8 fL (7.4-10.4) 09/14/23 04:02 Neut % (Auto) 62.5 % 09/14/23 04:02 Lymph % (Auto) 13.4 % 09/14/23 04:02 [place] % (Auto) 12.6 % 09/14/23 04:02 Eos % (Auto) 10.1 % 09/14/23 04:02 Baso % (Auto) 0.4 % 09/14/23 04:02 Neut # (Auto) 5.64 10^3/uL (1.8-7.7) 09/14/23 04:02 Lymph # (Auto) 1.2 10^3/uL (0.8-4.8) 09/14/23 04:02 [place] # (Auto) 1.1 10^3/uL (0.2-0.9) H 09/14/23 04:02 Eos # (Auto) 0.9 10^3/uL (0.0-0.8) H 09/14/23 04:02 Baso # (Auto) 0.0 10^3/uL (0.0-0.1) 09/14/23 04:02 Nucleated RBC % (auto) 0 % 09/14/23 04:02 Nucleated RBCs # 0.0 /100WBC 09/14/23 04:02 D-Dimer 1.74 ug/mLFEU (0-0.59) H 09/09/23 15:24 Specimen Type Arterial 09/10/23 21:00 Sample Site Radial, left 09/10/23 21:00 ABG pH 7.53 (7.35-7.45) H 09/10/23 21:00 ABG pCO2 54.3 mmHg (35-45) H 09/10/23 21:00 ABG pO2 55.4 mmHg (80.0-100.0) L 09/10/23 21:00 ABG PO2/FiO2 Ratio 0 09/10/23 21:00 ABG HCO3 44.8 mmol/L (22-26) H 09/10/23 21:00 ABG O2 Saturation 92.7 09/10/23 21:00 ABG Base Excess 19.5 mmol/L (-2.0-2.0) H 09/10/23 21:00 Shane Test Pos 09/10/23 21:00 A-a O2 Gradient 15.5 mmHg (5-10) H 09/10/23 21:00 Hematocrit 32.3 % (37-47) L 09/10/23 21:00 Hgb O2 Saturation 91.0 % (95-100) L 09/10/23 21:00 Carboxyhemoglobin 1.3 %THgb (0.4-20.1) 09/10/23 21:00 Methemoglobin 0.5 % (0.4-1.5) 09/10/23 21:00 Total Hemoglobin 10.5 g/dL (12-16) L 09/10/23 21:00 Sodium 136.0 mmol/L (131-143) 09/10/23 21:00 Potassium 4.0 mmol/L (3.5-5.0) 09/10/23 21:00 Glucose 106.0 mg/dL (70-115) 09/10/23 21:00 Ionized Calcium 1.2 mmol/L (1.1-1.4) 09/10/23 21:00 O2 Delivery Device Bipap 09/10/23 21:00 O2 Liters/Min 3.0 % 09/10/23 15:00 FiO2 34.0 % 09/10/23 21:00 PEEP 8.0 cmH20 09/10/23 21:00 Network Pricing Consultant ID Alewe 09/10/23 21:00 Sodium 137 mmol/L (136-145) 09/16/23 03:36 Potassium 3.7 mmol/L (3.5-5.1) 09/16/23 03:36 Chloride 89 mmol/L (98-107) L 09/16/23 03:36 Carbon Dioxide 45 mmol/L (22-29) H* 09/16/23 03:36 Anion Gap 6.7 (5-19) 09/16/23 03:36 BUN 14 mg/dL (8-23) 09/16/23 03:36 Creatinine 0.3 mg/dL (0.5-0.9) L 09/16/23 03:36 GFR Calculation Not Reportable 09/16/23 03:36 Glucose 98 mg/dL (65-115) 09/16/23 03:36 POC Glucose 87 mg/dL (70-110) 09/12/23 12:30 Estimat Average Glucose 100 09/10/23 03:47 Hemoglobin A1c 5.1 % (4.0-6.0) 09/10/23 03:47 Calculated Osmolality 284 mOsm/kg (285-295) L 09/16/23 03:36 Lactic Acid 1.3 mmol/L (0.5-2.2) 09/09/23 17:26 Calcium 9.9 mg/dL (8.5-10.5) 09/16/23 03:36 Phosphorus 4.3 mg/dL (2.5-4.5) 09/10/23 03:47 Magnesium 1.3 mg/dL (1.7-2.3) L 09/10/23 03:47 Iron 26 ug/dL (37-145) L 09/09/23 15:24 TIBC 219 mcg/dl 09/09/23 15:24 % Saturation 11.8 % (20-50) L 09/09/23 15:24 Unsat Iron Binding 193 ug/dL (112-347) 09/09/23 15:24 Total Bilirubin 0.8 mg/dL (0.15-1.2) 09/14/23 04:02 AST 13 U/L (0-32) 09/14/23 04:02 ALT 20 U/L (0-33) 09/14/23 04:02 Alkaline Phosphatase 163 U/L (35-105) H 09/14/23 04:02 Ammonia 33 umol/L (11-51) 09/13/23 04:26 Troponin T Baseline 23 ng/L (0-10) H 09/15/23 12:07 Troponin T 120 Minute 20.85 ng/L (0-10) H 09/15/23 16:06 Delta Troponin T -2.15 ABS# (0-10) L 09/15/23 16:06 Troponin T Hi Sens 6Hr 22.87 ng/L (0-10) H 09/15/23 18:00 Troponin T Hi Sens 6Hr Delta -0.13 ng/L (0-12) L 09/15/23 18:00 NT-Pro-B Natriuret Pep 1402 pg/mL (0-450) H 09/09/23 15:24 Total Protein 6.3 g/dL (6.6-8.7) L 09/14/23 04:02 Albumin 3.7 g/dL (3.5-5.2) 09/14/23 04:02 Globulin 2.6 g/dL (1.3-4.6) 09/14/23 04:02 Triglycerides 39 mg/dL (0-150) 09/10/23 03:47 Cholesterol 90 mg/dL (0-200) 09/10/23 03:47 LDL Cholesterol, Calc 28 mg/dL (50-129) L 09/10/23 03:47 HDL Cholesterol 54 mg/dL (60-100) L 09/10/23 03:47 LDL/HDL Ratio 0.52 RATIO (0.00-3.22) 09/10/23 03:47 Cholesterol/HDL Ratio 1.67 mg/dL (0.0-4.40) 09/10/23 03:47 Vitamin B12 718 pg/mL (232-1245) 09/09/23 15:24 Folate > 20.0 ng/mL (4.8-37.3) 09/10/23 03:47 Procalcitonin 0.23 ng/mL (0-0.5) 09/10/23 03:47 TSH 0.64 uIU/mL (0.27-4.20) 09/09/23 15:24 Urine Color Dark yellow (Yellow) 09/09/23 16:25 Urine Appearance Cloudy (CLEAR) A 09/09/23 16:25 Urine pH 5 (5-7) 09/09/23 16:25 Ur Specific [place] 1.015 (1.005-1.030) 09/09/23 16:25 Urine Protein 1+ (Negative) H 09/09/23 16:25 Urine Glucose (UA) Norm (Normal) 09/09/23 16:25 Urine Ketones 1+ (Negative) H 09/09/23 16:25 Urine Blood Trace (Negative) H 09/09/23 16:25 Urine Nitrate Negative (Negative) 09/09/23 16:25 Urine Bilirubin 1+ (Negative) H 09/09/23 16:25 Urine Urobilinogen Neg mg/dL (Negative) 09/09/23 16:25 Ur Leukocyte Esterase 1+ (Negative) H 09/09/23 16:25 Urine RBC 0-4 /hpf (0-2) H 09/09/23 16:25 Urine WBC 15-25 /hpf (0-5) H 09/09/23 16:25 Ur Squamous Epith Cells 5-10 /hpf (0-5) H 09/09/23 16:25 Amorphous Sediment Not Reportable 09/09/23 16:25 Urine Bacteria 2+ /hpf (NONE) H 09/09/23 16:25 Hyaline Casts 0-4 /lpf H 09/09/23 16:25 Adenovirus (PCR) Not detected (NOT DETECT) 09/09/23 21:20 C. pneumoniae DNA (PCR) Not detected (NOT DETECT) 09/09/23 21:20 Coronavirus 229E (PCR) Not detected (NOT DETECT) 09/09/23 21:20 Human Metapneumovir PCR Not detected (NOT DETECT) 09/09/23 21:20 Influenza A (H1) PCR Not detected (NOT DETECT) 09/09/23 21:20 Influ A (H1/09) PCR Not detected (NOT DETECT) 09/09/23 21:20 Influenza A (H3) PCR Not detected (NOT DETECT) 09/09/23 21:20 Influenza Type A (PCR) Not detected (NOT DETECT) 09/09/23 21:20 Influenza Type B (PCR) Not detected (NOT DETECT) 09/09/23 21:20 M. pneumoniae (PCR) Not detected (NOT DETECT) 09/09/23 21:20 Parainfluenza 1 (PCR) Not detected (NOT DETECT) 09/09/23 21:20 Parainfluenza 2 (PCR) Not detected (NOT DETECT) 09/09/23 21:20 Parainfluenza 3 (PCR) Not detected (NOT DETECT) 09/09/23 21:20 Parainfluenza 4 (PCR) Not detected (NOT DETECT) 09/09/23 21:20 RSV Type A (PCR) Not detected (NOT DETECT) 09/09/23 21:20 RSV Type B (PCR) Not detected (NOT DETECT) 09/09/23 21:20 Entero/Rhino (PCR) Not detected (NOT DETECT) 09/09/23 21:20 SARS-CoV-2 (PCR) Not detected (NOT DETECT) 09/09/23 21:20 Vitals Last Vital Signs Temp 97.5 F L 09/16/23 08:00 Pulse 95 09/16/23 10:24 Resp 17 09/16/23 10:24 BP 123/72 09/16/23 08:00 Pulse Ox 96 09/16/23 10:24 O2 Del Method Nasal Cannula 09/16/23 10:24 O2 Flow Rate 5 09/16/23 10:24 FiO2 40 09/12/23 02:25 Discharge Plan Discharge Patient Disposition: Xfer SNF Condition: Fair Prescriptions: New levofloxacin 750 mg tablet 750 mg PO DAILY 4 Days Qty: 4 0RF linezolid 600 mg tablet 600 mg PO BID Qty: 8 0RF Continued bisacodyl [Dulcolax (bisacodyl)] 10 mg suppository 10 mg IA DAILY PRN (Reason: Constipation) magnesium hydroxide [Milk of Magnesia] 400 mg/5 mL suspension 30 ml PO DAILY PRN (Reason: Constipation) calcium citrate 200 mg (950 mg) tablet 200 mg PO QAM folic acid 1 mg tablet 1 mg PO QAM pantoprazole 40 mg tablet,delayed release (DR/EC) 40 mg PO QAM risperidone 0.25 mg tablet 0.25 mg PO BEDTIME cholecalciferol (vitamin D3) 50 mcg (2,000 unit) capsule 50 mcg PO QAM benzonatate 100 mg capsule 100 mg PO TID PRN (Reason: Cough) docusate sodium 100 mg capsule 100 mg PO BID PRN (Reason: Constipation) oxybutynin chloride 5 mg tablet 5 mg PO BID gentamicin 0.1 % ointment 1 applic topical TID Rx Instructions: APPLY TO WOUND BED (DC ON 09/13/23) Tylenol 325 mg Tablet See Rx Instructions .ROUTE .COMPLEX Rx Instructions: 650MG PO QAM,325MG PO IN THE AFTERNOON AND 325MG PO AT BEDTIME vitamin A and D Ointment See Rx Instructions .ROUTE .COMPLEX Rx Instructions: APPLY OINTMENT TO LEFT LOWER LEG AND FOOT WITH WOUND CARE TREATMENT DAILY Debrox 6.5 % Drops See Rx Instructions .ROUTE .COMPLEX Rx Instructions: INSTILL IN BOTH EARS EVERY DAY FOR 5 DAYS THEN FLUSH EARS DIRECTED (DC ON 09/13/23) gabapentin 300 mg Capsule See Rx Instructions .ROUTE .COMPLEX Rx Instructions: 300MG (1 CAP) PO BID@07:00,12:00 AND 600MG (2 CAPS) PO AT BEDTIME Probiotic 10 billion cell Capsule See Rx Instructions .ROUTE .COMPLEX Rx Instructions: TAKE ONE CAP PO DAILY FOR 7 DAYS (STOP ON 09/11/23) lidocaine HCl 2 % Gel See Rx Instructions .ROUTE .COMPLEX Rx Instructions: APPLY TO WOUND BED 1/2 HOUR PRIOR TO WOUND CARE VISIT WEEKLY Changed metoprolol tartrate 25 mg tablet 12.5 mg PO BID Qty: 1 0RF Discontinued naproxen 500 mg tablet 500 mg PO BID PRN (Reason: Pain) levofloxacin 750 mg tablet 750 mg PO DAILY Rx Instructions: FOR 7 DAYS (STOP ON 09/11/23) Discharge Orders: Discharge Order (Routine); Ordered 09/16/23 Ordered By: Jarad Earl Referrals: Primary, provider [Other] - 4-7 days [facility] [Outside] Discharge Diet: As Directed Discharge Activity: Increase activity as tolerated and Oxygen as instructed Patient Instructions: Levofloxacin (By mouth) (Levaquin, Levaquin Leva-gunner), Linezolid (By mouth), Urinary Tract Infection in Women (DC), Cellulitis (ED), Acute Respiratory Failure (GEN), Opioid Safety Activity Restrictions/Additional Instructions: Continue nasal cannula oxygen 3 and half liters, wean down as tolerating. Continue to encourage incentive spirometer use every 1-2 hours. Reassess for resolution of pneumonia. Maintain strict aspiration precautions with risk of aspiration due to generalized weakness, maintain dysphagia level 4 diet, extremely thick/pur?ed consistency with mildly thick liquids. Turn frequently to avoid pressure ulcers. Change dressings daily on wound on posterior left leg with Hydrofera Blue, cover with gauze, offload legs/heels. Reassess for complete resolution of right lower leg cellulitis and healing of posterior left lower leg wound. 1 possible attempt restart of therapy with assistance, transfers, ambulation if tolerating at least several times a week. Continue to consider goals of care, consider options in case of recurrence of illness, consideration of institution of comfort measures in case of further downturn in health versus return to the hospital. Depending on goals of care consider follow-up regarding incidentally seen heterogenous right breast densities, consider mammography. Similarly depending on goals of care consider follow-up regarding ventral abdominal hernia. Discharge Attestations Time Spent in Discharge Care*: greater than 30 min Quality Metrics Clinical Quality Measures [ No reported AMI, CVA or VTE this stay] Coding Level of Care Code 32373 Total time (in minutes) for Discharge: 45 Diagnoses Chest pressure R07.89 Respiratory failure with hypoxia and hypercapnia J96.91; J96.92 Encephalopathy G93.40 Septic shock A41.9; R65.21 UTI (urinary tract infection) N39.0 Transaminitis R74.01 Hyponatremia E87.1 Hyperkalemia E87.5 Left leg cellulitis L03.116 Essential (primary) hypertension I10 Non-healing wound of left lower extremity S81.802A Goals of care, counseling/discussion Z71.89
[2023-09-16] MEDS: meropenem 1,000 MG in sodium chloride 0.9% (plus) 50 ML 100 MG IV (12:00)
--- NOTE | 2023-09-16 12:47 | PC.NURSE ---
Report called to Nikki at [facility]
== END 2023-09-16 15:32 | disposition home or self-care (01) | DRG 193 ==
LOC: ER 15:46 → ICU 20:16 → MEDSURG 09-12 16:57 → CSU 09-13 04:50 → MEDSURG 09-13 04:53
PROVIDERS: Admitting Provider Student in an Organized Health Care Education/Training Program; Emergency Provider Family Medicine; Visit Provider Internal Medicine
DX: J18.9 Pneumonia, unspecified organism (principal); J96.01 Acute respiratory failure with hypoxia; J96.02 Acute respiratory failure with hypercapnia; R65.21 Severe sepsis with septic shock; G93.40 Encephalopathy, unspecified; E87.1 Hypo-osmolality and hyponatremia; L03.116 Cellulitis of left lower limb; L03.115 Cellulitis of right lower limb; I27.20 Pulmonary hypertension, unspecified; R74.01 Elevation of levels of liver transaminase levels; E87.5 Hyperkalemia; E87.6 Hypokalemia; I10 Essential (primary) hypertension; F03.90 Unspecified dementia, unspecified severity, without behavioral disturbance, psychotic disturbance, mood disturbance, and anxiety; K21.9 Gastro-esophageal reflux disease without esophagitis; K45.8 Other specified abdominal hernia without obstruction or gangrene; Z66 Do not resuscitate; H54.8 Legal blindness, as defined in USA; S81.802A Unspecified open wound, left lower leg, initial encounter; X58.XXXA Exposure to other specified factors, initial encounter
CPT/HCPCS: 36415; 36416; 36600; 51702; 71045; 71275; 74177; 76705; 80048; 80051; 80053; 80061; 81001; 82140; 82330; 82607; 82746; 82805; 82962; 83036; 83540; 83550; 83605; 83735; 83880; 84100; 84145; 84443; 84484; 85025; 85378; 86403; 87040; 87086; 87449; 87486; 87581; 87633; 92523; 92610; 93005; 93306; 94640; 94660; 94664; 94762; 96365; 96367; 96372; 96375; 96376; 97161; 97167; 97535; 99285; J0456; J0696; J1644; J1815; J1940; J2020; J2185; J2270; J2405; J3490; J7040; J7050; J7613; J7799; P9046; Q9967